=== PATIENT | male | born 1955 | race Caucasian/White ===

== ENCOUNTER 2016-08-01 07:39 | Outpatient (CLI) | payer MEDICAID | END 2016-08-01 07:40 | disposition home or self-care (01) | DX: I26.99 Other pulmonary embolism without acute cor pulmonale (principal) ==

== ENCOUNTER 2016-08-29 08:00 | Outpatient (CLI) | payer MEDICAID, MEDICARE | END 2016-08-29 23:59 | DX: I26.99 Other pulmonary embolism without acute cor pulmonale (principal) ==

== ENCOUNTER 2016-09-12 13:22 | Outpatient (CLI) | payer MEDICAID, MEDICARE | END 2016-09-12 13:23 | disposition home or self-care (01) | DX: I26.99 Other pulmonary embolism without acute cor pulmonale (principal) ==

== ENCOUNTER 2016-09-26 08:06 | Outpatient (CLI) | payer MEDICARE | END 2016-09-26 08:07 | disposition home or self-care (01) | DX: I26.99 Other pulmonary embolism without acute cor pulmonale (principal) ==

== ENCOUNTER 2016-10-11 08:00 | Outpatient (CLI) | payer MEDICARE | END 2016-10-11 08:01 | DX: I26.99 Other pulmonary embolism without acute cor pulmonale (principal) ==

== ENCOUNTER 2016-10-25 13:44 | Outpatient (CLI) | payer MEDICAID, MEDICARE | END 2016-10-25 13:45 | disposition home or self-care (01) | DX: I26.99 Other pulmonary embolism without acute cor pulmonale (principal) ==

== ENCOUNTER 2016-11-07 09:25 | Outpatient (CLI) | payer MEDICARE | END 2016-11-07 09:26 | disposition home or self-care (01) | DX: I26.99 Other pulmonary embolism without acute cor pulmonale (principal) ==

== ENCOUNTER 2016-11-29 15:00 | Outpatient (CLI) | payer MEDICARE | END 2016-11-29 15:01 | disposition home or self-care (01) | LOC: LAB.R 15:00 | PROVIDERS: ATTEND Nurse Practitioner Family | DX: J02.9 Acute pharyngitis, unspecified (principal) | CPT/HCPCS: 87070 ==

== ENCOUNTER 2016-12-13 08:00 | Outpatient (CLI) | payer MEDICARE | END 2016-12-13 08:01 | disposition home or self-care (01) | LOC: LAB.N 08:00 | PROVIDERS: ATTEND Internal Medicine Hematology & Oncology | DX: I26.99 Other pulmonary embolism without acute cor pulmonale (principal) | CPT/HCPCS: 85610 ==

== ENCOUNTER 2016-12-27 10:06 | Outpatient (CLI) | payer MEDICARE | END 2016-12-27 23:59 | disposition home or self-care (01) | LOC: LAB.N 10:06 | PROVIDERS: ATTEND Internal Medicine Hematology & Oncology | DX: I26.99 Other pulmonary embolism without acute cor pulmonale (principal) | CPT/HCPCS: 85610 ==

== ENCOUNTER 2017-01-11 13:19 | Outpatient (CLI) | payer MEDICARE | END 2017-01-11 13:20 | LOC: LAB.N 13:19 | PROVIDERS: ATTEND Internal Medicine Hematology & Oncology | DX: I26.99 Other pulmonary embolism without acute cor pulmonale (principal) | CPT/HCPCS: 85610 ==

== ENCOUNTER 2017-01-24 08:00 | Outpatient (CLI) | payer MEDICARE | END 2017-01-24 08:01 | disposition home or self-care (01) | LOC: LAB.N 08:00 | PROVIDERS: ATTEND Internal Medicine Hematology & Oncology | DX: I26.99 Other pulmonary embolism without acute cor pulmonale (principal) | CPT/HCPCS: 85610 ==

== ENCOUNTER 2017-03-08 07:46 | Outpatient (CLI) | payer MEDICARE | END 2017-03-08 07:47 | disposition home or self-care (01) | LOC: LAB.N 07:46 | PROVIDERS: ATTEND Internal Medicine Hematology & Oncology | DX: I26.99 Other pulmonary embolism without acute cor pulmonale (principal) | CPT/HCPCS: 85610 ==

== ENCOUNTER 2017-03-21 08:00 | Outpatient (CLI) | payer MEDICARE | END 2017-03-21 08:01 | disposition home or self-care (01) | LOC: LAB.N 08:00 | PROVIDERS: ATTEND Internal Medicine Hematology & Oncology | DX: I26.99 Other pulmonary embolism without acute cor pulmonale (principal) | CPT/HCPCS: 85610 ==

== ENCOUNTER 2017-03-31 14:41 | Outpatient (CLI) | payer MEDICARE | END 2017-03-31 14:42 | disposition home or self-care (01) | LOC: LAB.N 14:41 | PROVIDERS: ATTEND Internal Medicine Hematology & Oncology | DX: I26.99 Other pulmonary embolism without acute cor pulmonale (principal) | CPT/HCPCS: 85610 ==

== ENCOUNTER 2017-04-07 15:26 | Outpatient (CLI) | payer MEDICARE | END 2017-04-07 15:27 | disposition home or self-care (01) | LOC: LAB.N 15:26 | PROVIDERS: ATTEND Internal Medicine Hematology & Oncology | DX: I26.99 Other pulmonary embolism without acute cor pulmonale (principal) | CPT/HCPCS: 85610 ==

== ENCOUNTER 2017-04-18 07:59 | Outpatient (CLI) | payer MEDICARE | END 2017-04-18 08:00 | disposition home or self-care (01) | LOC: LAB.N 07:59 | PROVIDERS: ATTEND Internal Medicine Hematology & Oncology | DX: I26.99 Other pulmonary embolism without acute cor pulmonale (principal) | CPT/HCPCS: 85610 ==

== ENCOUNTER 2017-05-02 08:00 | Outpatient (CLI) | payer MEDICARE | END 2017-05-02 08:01 | disposition home or self-care (01) | LOC: LAB.N 08:00 | PROVIDERS: ATTEND Internal Medicine Hematology & Oncology | DX: I26.99 Other pulmonary embolism without acute cor pulmonale (principal) | CPT/HCPCS: 85610 ==

== ENCOUNTER 2017-05-16 14:58 | Outpatient (CLI) | payer MEDICARE ==
[2017-05-16 12:46] LABS: BASOPHILS % (AUTO) 0.3 %; EOSINOPHILS % (AUTO) 0.6 %; HCT - HEMATOCRIT 39.1 % (42.0-52.0); HGB - HEMOGLOBIN 13.4 g/dL (14.0-18.0); LYMPHOCYTES # (AUTO) 1.1 10^3/uL (1.5-3.5); MEAN CORPUSCULAR HEMOGLOBIN 32.6 pg (27.0-31.0); MEAN CORPUSCULAR HGB CONC 34.1 g/dL (32.0-36.0); MEAN CORPUSCULAR VOLUME 95.6 fL (80.0-94.0); MEAN PLATELET VOLUME 7.6 fL (7.4-11.4); MONOCYTES # (AUTO) 0.5 10^3/uL (0.0-1.0); MONOCYTES % (AUTO) 11.6 %; NEUTROPHILS # (AUTO) 2.9 10^3/uL (1.5-6.6); NEUTROPHILS % (AUTO) 63.5 %; RED BLOOD COUNT 4.09 10^6/uL (4.70-6.10); UNCORRECTED WHITE BLOOD COUNT 4.6 x10^3/uL; WHITE BLOOD COUNT 4.6 x10^3/uL (4.8-10.8)
[2017-05-16 13:24] LABS: ALBUMIN/GLOBULIN RATIO 1.3 (1.0-2.2); BILIRUBIN,TOTAL 0.5 mg/dL (0.2-1.0); BUN - BLOOD UREA NITROGEN 19 mg/dL (6-20); CALCIUM 8.9 mg/dL (8.5-10.3); CARBON DIOXIDE - CO2 24 mmol/L (21-32); CHLORIDE 105 mmol/L (101-111); CHOL/HDL RATIO 4.3 (<5.0); CHOLESTEROL 156 mg/dL; GFR - MDRD 76 (>89); GLUCOSE 102 mg/dL (70-100); HDL CHOLESTEROL 36 mg/dL; LDL/HDL RATIO 2.6 (<3.6); SODIUM 136 mmol/L (135-145); TOTAL PROTEIN 7.2 g/dL (6.7-8.2); TRIGLYCERIDES 128 mg/dL; VLDL CHOLESTEROL 26 mg/dL
== END 2017-05-16 14:59 | disposition home or self-care (01) ==
LOC: LAB.N 14:58
PROVIDERS: ATTEND Nurse Practitioner Family
DX: I10 Essential (primary) hypertension (principal); E78.5 Hyperlipidemia, unspecified; I26.99 Other pulmonary embolism without acute cor pulmonale
CPT/HCPCS: 36415; 80053; 80061; 84443; 85025; 85610

== ENCOUNTER 2017-05-19 08:03 | Outpatient (CLI) | payer MEDICARE | END 2017-05-19 08:04 | disposition home or self-care (01) | LOC: LAB.N 08:03 | PROVIDERS: ATTEND Nurse Practitioner Family | DX: D53.9 Nutritional anemia, unspecified (principal); I26.99 Other pulmonary embolism without acute cor pulmonale | CPT/HCPCS: 36415; 82607; 82746; 82977; 85610 ==

== ENCOUNTER 2017-05-30 15:05 | Outpatient (CLI) | payer MEDICARE | END 2017-05-30 15:06 | disposition home or self-care (01) | LOC: LAB.N 15:05 | PROVIDERS: ATTEND Internal Medicine Hematology & Oncology | DX: I26.99 Other pulmonary embolism without acute cor pulmonale (principal) | CPT/HCPCS: 85610 ==

== ENCOUNTER 2017-06-13 08:00 | Outpatient (CLI) | payer MEDICARE | END 2017-06-13 08:01 | disposition home or self-care (01) | LOC: LAB.N 08:00 | PROVIDERS: ATTEND Internal Medicine Hematology & Oncology | DX: I26.99 Other pulmonary embolism without acute cor pulmonale (principal) | CPT/HCPCS: 85610 ==

== ENCOUNTER 2017-06-25 20:56 | Outpatient (CLI) | payer MEDICARE | END 2017-06-25 20:57 | disposition critical access hospital (66) | LOC: EMS 20:56 | PROVIDERS: ATTEND Surgery | DX: R51 Headache (principal); W00.9XXA Unspecified fall due to ice and snow, initial encounter; Y92.9 Unspecified place or not applicable | CPT/HCPCS: A0425; A0429 ==

== ENCOUNTER 2017-06-25 21:34 | Emergency (ER) | payer MEDICARE ==
--- NOTE | 2017-06-25 22:34 | CT Preliminary Report ---
Exam: CT HEAD W/O IMPRESSION: 1. Suspect acute trace subarachnoid or subdural hemorrhage in the left frontal lobe, consistent with contrecoup injury. 2. Suggestion of a masslike lesion in the left frontal lobe lateral to the area of surgery. A recurre nt tumor cannot be excluded. Consider further evaluation with brain MRI with and without contrast. [facility] The above critical findings were discussed with Dr. Moreno by Dr. Tomeka Beck at 22:32 hrs on 06/25/17. SITE ID: [id number]
--- NOTE | 2017-06-25 22:44 | CT Report ---
EXAM: CT HEAD EXAM DATE: 06/25/2017 10:10 PM. CLINICAL HISTORY: Head pain, fall. History of left frontal tumor resection. COMPARISON: Brain CT and MRI from 06/14/2014. TECHNIQUE: Multiaxial CT images were obtained from the foramen magnum to the vertex. Reformats: Coron al. IV contrast: None. In accordance with CT protocol optimization, one or more of the following dose reduction techniques w ere utilized for this exam: automated exposure control, adjustment of mA and/or KV based on patient s ize, or use of iterative reconstructive technique. FINDINGS: Parenchyma: Encephalomalacia in the anterior left frontal lobe is consistent with prior surgery. A pu nctate focus of hyperintensity in the region of encephalomalacia (image 15, series 3) likely represen ts dystrophic calcification rather than acute parenchymal hemorrhage. Lateral to this, There is sugge stion of a mildly hyperdense masslike lesion measuring 3.2 x 3.0 cm (image 19, series 3). The wilson-wh ite matter differentiation elsewhere in the brain is preserved. Extraaxial Spaces: There is ill-defined hyperdensity in the left frontal extra-axial space (image 19, series 3), suspicious for acute subdural or subarachnoid hemorrhage. Ventricles: The ventricles and cortical sulci are mildly enlarged, consistent with age-related tissue loss. Sinuses and orbits: Imaged paranasal sinuses, orbits, and mastoids show no significant abnormality. Bones: Old left frontal craniotomy changes are present from prior surgery. A moderate right frontal s calp hematoma is present without an acute calvarial fracture. Other: Mild intragraft atherosclerosis is noted. IMPRESSION: 1. Suspect acute trace subarachnoid or subdural hemorrhage in the left frontal lobe, consistent with contrecoup injury. 2. Suggestion of a masslike lesion in the left frontal lobe lateral to the area of surgery. A recurre nt tumor cannot be excluded. Consider further evaluation with brain MRI with and without contrast. [facility] The above critical findings were discussed with Dr. Moreno by Dr. Tomeka Beck at 22:32 hrs on 06/25/17. Referring Provider Line: [phone] SITE ID: [id number]
[2017-06-25 23:01] LABS: BASOPHILS % (AUTO) 0.2 %; EOSINOPHILS # (AUTO) 0.1 10^3/uL (0.0-0.7); EOSINOPHILS % (AUTO) 0.8 %; HCT - HEMATOCRIT 39.7 % (42.0-52.0); HGB - HEMOGLOBIN 13.3 g/dL (14.0-18.0); LYMPHOCYTES # (AUTO) 1.3 10^3/uL (1.5-3.5); LYMPHOCYTES % (AUTO) 19.4 %; MEAN CORPUSCULAR HEMOGLOBIN 32.9 pg (27.0-31.0); MEAN CORPUSCULAR HGB CONC 33.6 g/dL (32.0-36.0); MEAN CORPUSCULAR VOLUME 97.7 fL (80.0-94.0); MEAN PLATELET VOLUME 7.1 fL (7.4-11.4); MONOCYTES # (AUTO) 0.6 10^3/uL (0.0-1.0); MONOCYTES % (AUTO) 9.9 %; NEUTROPHILS # (AUTO) 4.6 10^3/uL (1.5-6.6); NEUTROPHILS % (AUTO) 69.7 %; RED BLOOD COUNT 4.06 10^6/uL (4.70-6.10); RED CELL DISTRIBUTION WIDTH 13.9 % (12.0-15.0); UNCORRECTED WHITE BLOOD COUNT 6.5 x10^3/uL; WHITE BLOOD COUNT 6.5 x10^3/uL (4.8-10.8)
[2017-06-25 23:05] LABS: CALCIUM 9.1 mg/dL (8.5-10.3); POTASSIUM 4.2 mmol/L (3.5-5.0)
--- NOTE | 2017-06-25 23:09 | ED Physician Documentation ---
History of Present Illness - Stated complaint Stated Complaint: FALL/HEAD INJURY - Chief complaint Chief Complaint: Trauma Hd/Nk - History obtained from History obtained from: Patient (pt is here for a fall and head injury. pt states that he was walking with his and fell and hit his head. He states that he does not remember falling. Did hit the right side of his head. he denied any chest pain, or palpitations or shortness of breath afterward. Event occured approx 2.5 hours prior to arrival in the ER. states that it was a mechanical fall and that he tripped and fell. she was concerned because he was on coumadin for a PE and the bleeding from the cut on his head. Pt had no complaints upon my examination.) Review of Systems Constitutional: denies: Fever, Chills Eyes: denies: Loss of vision, Decreased vision, Photophobia Ears: denies: Ear pain Nose: denies: Rhinorrhea / runny nose, Epistaxis Throat: denies: Dental pain / toothache, Oral lesions / sores, Sore throat Cardiac: denies: Chest pain / pressure, Palpitations Respiratory: denies: Dyspnea, Cough GI: denies: Abdominal Pain, Nausea, Vomiting, Constipation, Diarrhea : denies: Dysuria Skin: reports: Abrasion (s) (over nose), Laceration (s) (above right eye). denies: Rash, Lesions Musculoskeletal: denies: Neck pain, Back pain, Extremity pain, Joint pain, Extremity swelling, Joint swelling Neurologic: reports: Head injury, LOC. denies: Generalized weakness, Numbness, Difficulty speaking, Syncope, Seizure, Confused, Altered mental status, Headache Immunocompromised: reports: Chemotherapy PD PAST MEDICAL HISTORY - Past Medical History Past Medical History: Yes Cardiovascular: Hypertension Respiratory: Other Neuro: Other Other Past Medical History: Lung CA, Brain CA - Past Surgical History Past Surgical History: No Neuro: Gamma knife - Present Medications Home Medications: Ambulatory Orders Medication Instructions Recorded Confirmed Lisinopril 10 mg PO DAILY 06/14/14 06/25/17 Famotidine 20 mg PO DAILY 06/25/17 06/25/17 LORazepam [Ativan] 0.5 mg PO DAILY 06/25/17 06/25/17 Pravastatin Sodium 80 mg PO DAILY 06/25/17 06/25/17 Warfarin [Coumadin] 1 mg PO DAILY 06/25/17 06/25/17 Warfarin [Coumadin] 5 mg PO DAILY 06/25/17 06/25/17 - Allergies Allergies/Adverse Reactions: Allergies Allergy/AdvReac Type Severity Reaction Status Date / Time No Known Drug Allergies Allergy Verified 06/25/17 21:54 - Social History Does the pt smoke?: No Smoking Status: Never smoker Does the pt drink ETOH?: No Does the pt have substance abuse?: No - Immunizations Immunizations are current?: Yes PD ED PE NORMAL - Vitals Vital signs reviewed: Yes - General General: Alert and oriented X 3, No acute distress, Well developed/nourished - HEENT HEENT: PERRL, EOMI, Moist mucous membranes. No: Atraumatic (0.5 cm laceratino/ abrasion above the temporal area of his right eye, no active bleeding. No pain over the orbital rims bilateral. abrasion over bridge of nose. pt with healed surgical scars C/W his hx of brain tumor removal ) - Neck Neck: No bony TTP - Cardiac Cardiac: RRR, No murmur - Respiratory Respiratory: No respiratory distress - Abdomen Abdomen: Soft, Non tender - Derm Derm: Other (0.5 cm laceration above right eye and abrasion over the nose) - Extremities Extremities: No deformity, No tenderness to palpate, Normal ROM s pain, No edema , No calf tenderness / cord - Neuro Neuro: Alert and oriented X 3, gas meter repairer 2-12 intact, No motor deficit, No sensory deficit, Normal speech Eye Opening: Spontaneous Motor: Obeys Commands Verbal: Oriented GCS Score: 15 - Psych Psych: Normal mood, Normal affect Results - Vitals Vitals: Vital Signs - 24 hr 06/25/17 06/25/17 21:36 22:50 Temperature 35.9 C L Heart Rate 68 71 Respiratory 18 16 Rate Blood Pressure 147/81 H 138/76 H O2 Saturation 96 97 Oxygen O2 Source Room air - Labs Labs: Laboratory Tests 06/25/17 06/25/17 06/25/17 22:45 22:45 22:45 WBC 6.5 RBC 4.06 L Hgb 13.3 L Hct 39.7 L MCV 97.7 H MCH 32.9 H MCHC 33.6 RDW 13.9 Plt Count 196 MPV 7.1 L Neut # 4.6 Lymph # 1.3 L [place] # 0.6 Eos # 0.1 Baso # 0.0 Absolute Nucleated RBC 0.00 Nucleated RBC % 0.0 PT 25.1 H INR 2.3 H Sodium 138 Potassium 4.2 Chloride 101 Carbon Dioxide 29 Anion Gap 8.0 BUN 16 Creatinine 1.0 Estimated GFR (MDRD) 76 L Glucose 95 Calcium 9.1 - Rads (name of study) Head CT Radiology: Final report received PD MEDICAL DECISION MAKING - ED course Complexity details: reviewed old records, reviewed results, re-evaluated patient , considered differential, d/w patient, d/w family, d/w lean consultant ED course: pt with fall on coumadin and signs of a possible acute subarachnoid/subdural bleed. We also discussed the other CT findings with the pt and the concern for a new mass like lesion. Discussed case with Dr Ty at [facility] who accepts pt. he is stable for transport. will transfer. INR 2.3. no indication for acute reversal. Pt is neurologically stable. Departure - Departure Disposition: 02 Transfer Acute Care Hosp Clinical Impression: Fall, Subarachnoid bleed Condition: Stable
[2017-06-26 00:07] LABS: INR 2.3 (0.8-1.2); PT - PROTHROMBIN TIME 25.1 secs (9.9-12.6)
[2017-06-26 04:06] VITALS: BP 114/87
== END 2017-06-26 06:00 | disposition short-term general hospital (02) ==
LOC: EDUNIT# → ED 21:34
DX: I60.9 Nontraumatic subarachnoid hemorrhage, unspecified (principal); S01.111A Laceration without foreign body of right eyelid and periocular area, initial encounter; S00.31XA Abrasion of nose, initial encounter; W01.0XXA Fall on same level from slipping, tripping and stumbling without subsequent striking against object, initial encounter; Y93.01 Activity, walking, marching and hiking; I10 Essential (primary) hypertension; I26.99 Other pulmonary embolism without acute cor pulmonale; Z79.01 Long term (current) use of anticoagulants; Z85.118 Personal history of other malignant neoplasm of bronchus and lung; Z85.841 Personal history of malignant neoplasm of brain
CPT/HCPCS: 36415; 70450; 80048; 85025; 85610; 99284; 99285

== ENCOUNTER 2017-06-26 05:53 | Outpatient (CLI) | payer MEDICARE | END 2017-06-26 05:54 | disposition short-term general hospital (02) | LOC: EMS 05:53 | PROVIDERS: ATTEND Surgery | DX: S09.90XA Unspecified injury of head, initial encounter (principal); W19.XXXA Unspecified fall, initial encounter | CPT/HCPCS: A0170; A0425; A0426 ==

== ENCOUNTER 2017-07-11 10:01 | Emergency (ER) | payer MEDICARE ==
[2017-07-11 10:08] VITALS: BP 152/72
--- NOTE | 2017-07-11 11:00 | ED Physician Documentation ---
PD HPI URI - Stated complaint Stated Complaint: COUGH,LUNG PX,CONGESTION - Chief complaint Chief Complaint: Resp - History obtained from History obtained from: Patient - History of Present Illness Timing - onset: How many days ago (2-3) Timing duration: Days Timing details: Gradual onset, Still present (had onset of chills, malaise, and cough which has increased and now having some pains left chest with coughing. Concerned about pneumonia as has lung CA that side treated with targeted immune therapy (not immune suppressant). Has underlying COPD as well.) Associated symptoms: Fever, Chills, Dry cough. No: Hemoptysis, Bilateral edema , Unilateral edema Contributing factors: COPD / asthma. No: Sick contact, Travel, Immunocompromised Worsened by: Breathing, Other (cough) Recently seen: Not recently seen Review of Systems Constitutional: reports: Fever, Chills, Myalgias, Fatigue Nose: reports: Congestion Throat: denies: Sore throat Cardiac: reports: Chest pain / pressure. denies: Palpitations, Pedal edema, Calf pain Respiratory: reports: Cough, Wheezing. denies: Dyspnea GI: reports: Diarrhea (mild). denies: Nausea, Vomiting : denies: Dysuria, Frequency PD PAST MEDICAL HISTORY - Past Medical History Cardiovascular: Hypertension Respiratory: Other Neuro: Other - Past Surgical History Past Surgical History: No Neuro: Gamma knife - Present Medications Home Medications: Ambulatory Orders Medication Instructions Recorded Confirmed Lisinopril 10 mg PO DAILY 06/14/14 07/11/17 Famotidine 20 mg PO DAILY 06/25/17 07/11/17 LORazepam [Ativan] 0.5 mg PO DAILY 06/25/17 07/11/17 Pravastatin Sodium 80 mg PO DAILY 06/25/17 07/11/17 Warfarin [Coumadin] 1 mg PO DAILY 06/25/17 07/11/17 Warfarin [Coumadin] 5 mg PO DAILY 06/25/17 07/11/17 Albuterol Sulf [Ventolin Hfa 1 - 2 puffs INH Q4HR PRN #1 inhaler 07/11/17 Inhaler] Azithromycin [Zithromax] 250 mg PO DAILY #6 tablet 07/11/17 Benzonatate [Tessalon] 100 mg PO TID PRN #25 capsule 07/11/17 Dexamethasone [Decadron] 4 mg PO DAILY #5 tablet 07/11/17 - Allergies Allergies/Adverse Reactions: Allergies Allergy/AdvReac Type Severity Reaction Status Date / Time No Known Drug Allergies Allergy Verified 07/11/17 12:12 - Social History Does the pt smoke?: No Smoking Status: Never smoker Does the pt drink ETOH?: No Does the pt have substance abuse?: No - Immunizations Immunizations are current?: Yes - POLST Patient has POLST: No PD ED PE NORMAL - Vitals Vital signs reviewed: Yes - General General: Alert and oriented X 3, No acute distress, Well developed/nourished - HEENT HEENT: Ears normal, Pharynx benign - Neck Neck: Supple, no meningeal sign, No adenopathy - Cardiac Cardiac: RRR, No murmur - Respiratory Respiratory: No: Clear bilaterally (no coarse sounds, but does have some general mild wheezing. ) - Abdomen Abdomen: Soft, Non tender - Derm Derm: Normal color, Warm and dry - Extremities Extremities: No tenderness to palpate, Normal ROM s pain, No edema, No calf tenderness / cord - Neuro Neuro: Alert and oriented X 3, No motor deficit, Normal speech Results - Vitals Vitals: Oxygen O2 Source Room air - Rads (name of study) chest Radiology: Prelim report reviewed (left chest mass c/w tumor), EMP read contemporaneously PD MEDICAL DECISION MAKING - ED course Complexity details: reviewed results (no infiltrates; left chest mass c/w malignancy (known process for the patient). ), considered differential (sounds like URI with cough and some pleural pain with cough. Gradual onset and he says he feels ill, feeling like he has infection. After discussion, we had shared decision to not investigate for PE. He is to resume Warfarin today anyway ( planned timing post ICH recently). He will be having Coumadin level checked next week, which is good as the abx/steroids will increased level faster than might otherwise. Likely viral but with underlying lung disease, will give abx too as literature suggests better outcomes.), d/w patient Departure - Departure Disposition: 01 Home, Self Care Clinical Impression: Bronchitis Upper respiratory infection Qualifiers: URI type: unspecified URI Qualified Code(s): J06.9 - Acute upper respiratory infection, unspecified Condition: Stable Record reviewed to determine appropriate education?: Yes Instructions: ED Upper Resp Infec Abx Tx Follow-Up: Fly,Shaneka M, [employer] [Primary Care Provider] - Prescriptions: Albuterol Sulf [Ventolin Hfa Inhaler] 1 - 2 puffs INH Q4HR PRN #1 inhaler PRN Reason: Shortness Of Air/Wheezing Azithromycin [Zithromax] 250 mg PO DAILY #6 tablet Benzonatate [Tessalon] 100 mg PO TID PRN #25 capsule PRN Reason: Cough Dexamethasone [Decadron] 4 mg PO DAILY #5 tablet Comments: Use albuterol inhaler 2 puffs 4 times a day for the next 7-10 days. Then 2 as needed. Decadron daily for inflammation of the airways for the next 5 days. This more likely is viral but given your underlying lung problems, I be concern for bacterial and would give antibiotics as well. Take Zithromax daily for 5 days as directed. Use Tessalon if needed for cough. Recheck if not improved over the next few days return sooner if worse. Discharge Date/Time: 07/11/17 13:04
[2017-07-11] MEDS ORDERED: DEXAMETHASONE 10 MG/ML VIAL PO STA (11:30)
[2017-07-11] MEDS ORDERED: HYDROcod/ACETAM 5/325 MG TABLET PO STA (11:30)
[2017-07-11] MEDS ORDERED: IPRATROPIUM/ALBUTEROL 3 ML NEB INH STA (11:30)
[2017-07-11] MEDS ORDERED: CHERRY SYRUP 10 ML UDC PO ONE (12:07)
--- NOTE | 2017-07-11 12:10 | XRAY Report ---
EXAM: CHEST RADIOGRAPHY EXAM DATE: 07/11/2017 11:46 AM. CLINICAL HISTORY: Chest pain left sided. COMPARISON: None. TECHNIQUE: 2 views. FINDINGS: Lungs/Pleura: Left hilar/posterior left lung opacity measuring approximately 5 cm. Bilateral intersti tial opacities appear chronic. No pneumothorax or pleural effusion. The lungs appear mildly hyperinfl ated. Mediastinum: Heart size is normal. Other: Left chest port catheter tip is in the mid SVC. 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 Obstructive pneumonia or other superimpos ed acute infection not excluded. [facility] Referring Provider Line: [phone] SITE ID: [id number]
== END 2017-07-11 13:04 | disposition home or self-care (01) ==
LOC: ED 10:01
DX: J40 Bronchitis, not specified as acute or chronic (principal); J06.9 Acute upper respiratory infection, unspecified; I10 Essential (primary) hypertension; C34.90 Malignant neoplasm of unspecified part of unspecified bronchus or lung; Z79.01 Long term (current) use of anticoagulants
CPT/HCPCS: 71046; 94640; 99283; A9270; J7620

== ENCOUNTER 2017-07-18 07:51 | Outpatient (CLI) | payer MEDICARE | END 2017-07-18 07:52 | disposition home or self-care (01) | LOC: LAB.N 07:51 | PROVIDERS: ATTEND Internal Medicine Hematology & Oncology | DX: I26.99 Other pulmonary embolism without acute cor pulmonale (principal) | CPT/HCPCS: 85610 ==

== ENCOUNTER 2017-07-25 07:41 | Outpatient (CLI) | payer MEDICARE | END 2017-07-25 07:42 | disposition home or self-care (01) | LOC: LAB.N 07:41 | PROVIDERS: ATTEND Internal Medicine Hematology & Oncology | DX: I26.99 Other pulmonary embolism without acute cor pulmonale (principal) | CPT/HCPCS: 85610 ==

== ENCOUNTER 2017-08-04 07:34 | Outpatient (CLI) | payer MEDICARE | END 2017-08-04 07:35 | disposition home or self-care (01) | LOC: LAB.N 07:34 | PROVIDERS: ATTEND Internal Medicine Hematology & Oncology | DX: I26.99 Other pulmonary embolism without acute cor pulmonale (principal) | CPT/HCPCS: 85610 ==

== ENCOUNTER 2017-08-10 07:52 | Outpatient (CLI) | payer MEDICARE | END 2017-08-10 07:53 | LOC: LAB.N 07:52 | PROVIDERS: ATTEND Internal Medicine Hematology & Oncology | DX: I26.99 Other pulmonary embolism without acute cor pulmonale (principal) | CPT/HCPCS: 85610 ==

== ENCOUNTER 2017-08-22 08:00 | Outpatient (CLI) | payer MEDICARE | END 2017-08-22 08:01 | disposition home or self-care (01) | LOC: LAB.N 08:00 | PROVIDERS: ATTEND Internal Medicine Hematology & Oncology | DX: I26.99 Other pulmonary embolism without acute cor pulmonale (principal) | CPT/HCPCS: 85610 ==

== ENCOUNTER 2017-09-06 08:00 | Outpatient (CLI) | payer MEDICARE | END 2017-09-06 08:01 | disposition home or self-care (01) | LOC: LAB.N 08:00 | PROVIDERS: ATTEND Internal Medicine Hematology & Oncology | DX: I26.99 Other pulmonary embolism without acute cor pulmonale (principal) | CPT/HCPCS: 85610 ==

== ENCOUNTER 2017-09-19 08:10 | Outpatient (CLI) | payer MEDICARE | END 2017-09-19 08:11 | disposition home or self-care (01) | LOC: LAB.N 08:10 | PROVIDERS: ATTEND Internal Medicine Hematology & Oncology | DX: I26.99 Other pulmonary embolism without acute cor pulmonale (principal) | CPT/HCPCS: 85610 ==

== ENCOUNTER 2017-10-03 07:41 | Outpatient (CLI) | payer MEDICARE | END 2017-10-03 07:42 | disposition home or self-care (01) | LOC: LAB.N 07:41 | PROVIDERS: ATTEND Internal Medicine Hematology & Oncology | DX: I26.99 Other pulmonary embolism without acute cor pulmonale (principal) | CPT/HCPCS: 85610 ==

== ENCOUNTER 2017-10-17 07:57 | Outpatient (CLI) | payer MEDICARE | END 2017-10-17 07:58 | disposition home or self-care (01) | LOC: LAB.N 07:57 | PROVIDERS: ATTEND Internal Medicine Hematology & Oncology | DX: I26.99 Other pulmonary embolism without acute cor pulmonale (principal) | CPT/HCPCS: 85610 ==

== ENCOUNTER 2017-10-31 07:40 | Outpatient (CLI) | payer MEDICARE | END 2017-10-31 07:41 | disposition home or self-care (01) | LOC: LAB.N 07:40 | PROVIDERS: ATTEND Internal Medicine Hematology & Oncology | DX: I26.99 Other pulmonary embolism without acute cor pulmonale (principal) | CPT/HCPCS: 85610 ==

== ENCOUNTER 2017-11-16 10:41 | Outpatient (CLI) | payer MEDICARE | END 2017-11-16 10:42 | LOC: LAB.N 10:41 | PROVIDERS: ATTEND Internal Medicine Hematology & Oncology | DX: I26.99 Other pulmonary embolism without acute cor pulmonale (principal) | CPT/HCPCS: 85610 ==

== ENCOUNTER 2017-11-30 08:00 | Outpatient (CLI) | payer MEDICARE | END 2017-11-30 08:01 | disposition home or self-care (01) | LOC: LAB.N 08:00 | PROVIDERS: ATTEND Internal Medicine Hematology & Oncology | DX: I26.99 Other pulmonary embolism without acute cor pulmonale (principal) | CPT/HCPCS: 85610 ==

== ENCOUNTER 2017-12-14 07:51 | Outpatient (CLI) | payer MEDICARE | END 2017-12-14 23:59 | disposition home or self-care (01) | LOC: LAB.N 07:51 | PROVIDERS: ATTEND Internal Medicine Hematology & Oncology | DX: I26.99 Other pulmonary embolism without acute cor pulmonale (principal) | CPT/HCPCS: 85610 ==

== ENCOUNTER 2017-12-25 08:21 | Outpatient (CLI) | END 2017-12-25 08:22 | disposition home or self-care (01) ==

== ENCOUNTER 2017-12-28 07:43 | Outpatient (CLI) | payer MEDICARE | END 2017-12-28 07:44 | disposition home or self-care (01) | LOC: LAB.N 07:43 | PROVIDERS: ATTEND Internal Medicine Hematology & Oncology | DX: I26.99 Other pulmonary embolism without acute cor pulmonale (principal) | CPT/HCPCS: 85610 ==

== ENCOUNTER 2018-03-08 08:00 | Outpatient (CLI) | payer MEDICARE | END 2018-03-08 08:01 | disposition home or self-care (01) | LOC: LAB.N 08:00 | PROVIDERS: ATTEND Internal Medicine Hematology & Oncology | DX: I26.99 Other pulmonary embolism without acute cor pulmonale (principal) | CPT/HCPCS: 85610 ==

== ENCOUNTER 2018-03-22 08:00 | Outpatient (CLI) | payer MEDICARE ==
[2018-03-22 13:16] LABS: ALBUMIN 3.1 g/dL (3.2-5.5); ALBUMIN/GLOBULIN RATIO 0.8 (1.0-2.2); BILIRUBIN,TOTAL 3.6 mg/dL (0.2-1.0); CREATININE 0.9 mg/dL (0.6-1.2); TOTAL PROTEIN 7.1 g/dL (6.7-8.2)
[2018-03-22 13:22] LABS: PT - PROTHROMBIN TIME 76.4 secs (9.9-12.6)
[2018-03-22 13:47] LABS: INR 7.3 (0.8-1.2)
== END 2018-03-22 08:01 | disposition home or self-care (01) ==
LOC: LAB.N 08:00
PROVIDERS: ATTEND Internal Medicine Hematology & Oncology
DX: I26.99 Other pulmonary embolism without acute cor pulmonale (principal); C34.90 Malignant neoplasm of unspecified part of unspecified bronchus or lung
CPT/HCPCS: 36415; 80053; 85610

== ENCOUNTER 2018-03-23 13:17 | Outpatient (CLI) | payer MEDICARE | END 2018-03-23 13:18 | disposition home or self-care (01) | LOC: LAB.N 13:17 | PROVIDERS: ATTEND Internal Medicine Hematology & Oncology | DX: I26.99 Other pulmonary embolism without acute cor pulmonale (principal) | CPT/HCPCS: 85610 ==

== ENCOUNTER 2018-03-27 08:00 | Outpatient (CLI) | payer MEDICARE | END 2018-03-27 08:01 | disposition home or self-care (01) | LOC: LAB.N 08:00 | PROVIDERS: ATTEND Internal Medicine Hematology & Oncology | DX: I26.99 Other pulmonary embolism without acute cor pulmonale (principal) | CPT/HCPCS: 85610 ==

== ENCOUNTER 2018-04-05 08:00 | Outpatient (CLI) | payer MEDICARE | END 2018-04-05 08:01 | disposition home or self-care (01) | LOC: LAB.N 08:00 | PROVIDERS: ATTEND Internal Medicine Hematology & Oncology | DX: I26.99 Other pulmonary embolism without acute cor pulmonale (principal) | CPT/HCPCS: 85610 ==

== ENCOUNTER 2018-04-17 09:12 | Outpatient (CLI) | payer MEDICARE ==
[2018-04-17 13:23] LABS: ALBUMIN/GLOBULIN RATIO 1.3 (1.0-2.2); ALKALINE PHOSPHATASE 141 IU/L (42-121); ALT ALANINE AMINOTRANSFERASE 52 IU/L (10-60); AST ASPARTATE AMINOTRANSFERASE 45 IU/L (10-42); BILIRUBIN,TOTAL 1.2 mg/dL (0.2-1.0); BUN - BLOOD UREA NITROGEN 18 mg/dL (6-20); CHOL/HDL RATIO 5.4 (<5.0); CHOLESTEROL 331 mg/dL; CREATININE 1.1 mg/dL (0.6-1.2); GFR - MDRD 68 (>89); HDL CHOLESTEROL 61 mg/dL; LDL CHOLESTEROL,CALCULATED 229 mg/dL; LDL/HDL RATIO 3.8 (<3.6); TOTAL PROTEIN 7.2 g/dL (6.7-8.2); VLDL CHOLESTEROL 41 mg/dL
[2018-04-17 14:20] LABS: CALCIUM 9.3 mg/dL (8.5-10.3); CARBON DIOXIDE - CO2 26 mmol/L (21-32); CHLORIDE 101 mmol/L (101-111); GLUCOSE 91 mg/dL (70-100); SODIUM 137 mmol/L (135-145)
== END 2018-04-17 09:13 | disposition home or self-care (01) ==
LOC: LAB.WCP 09:12
PROVIDERS: ATTEND Family Medicine
DX: E78.5 Hyperlipidemia, unspecified (principal)
CPT/HCPCS: 36415; 80053; 80061; 83721

== ENCOUNTER 2018-04-19 07:59 | Outpatient (CLI) | payer MEDICARE | END 2018-04-19 08:00 | disposition home or self-care (01) | LOC: LAB.N 07:59 | PROVIDERS: ATTEND Internal Medicine Hematology & Oncology | DX: I26.99 Other pulmonary embolism without acute cor pulmonale (principal) | CPT/HCPCS: 85610 ==

== ENCOUNTER 2018-05-03 08:00 | Outpatient (CLI) | payer MEDICARE | END 2018-05-03 08:01 | LOC: LAB.N 08:00 | PROVIDERS: ATTEND Internal Medicine Hematology & Oncology | DX: I26.99 Other pulmonary embolism without acute cor pulmonale (principal) | CPT/HCPCS: 85610 ==

== ENCOUNTER 2018-05-17 08:53 | Outpatient (CLI) | payer MEDICARE ==
[2018-05-17 14:13] LABS: ALBUMIN 4.2 g/dL (3.2-5.5); ALBUMIN/GLOBULIN RATIO 1.4 (1.0-2.2); ALKALINE PHOSPHATASE 73 IU/L (42-121); ALT ALANINE AMINOTRANSFERASE 24 IU/L (10-60); AST ASPARTATE AMINOTRANSFERASE 33 IU/L (10-42); BILIRUBIN,TOTAL 1.1 mg/dL (0.2-1.0); BUN - BLOOD UREA NITROGEN 23 mg/dL (6-20); CALCIUM 9.2 mg/dL (8.5-10.3); CARBON DIOXIDE - CO2 28 mmol/L (21-32); CHLORIDE 100 mmol/L (101-111); CHOLESTEROL 290 mg/dL; GFR - MDRD 76 (>89); GLUCOSE 91 mg/dL (70-100); HDL CHOLESTEROL 58 mg/dL; LDL CHOLESTEROL,CALCULATED 201 mg/dL; LDL/HDL RATIO 3.5 (<3.6); SODIUM 135 mmol/L (135-145); TOTAL PROTEIN 7.1 g/dL (6.7-8.2); VLDL CHOLESTEROL 31 mg/dL
== END 2018-05-17 08:54 ==
LOC: LAB.WCP 08:53
PROVIDERS: ATTEND Family Medicine
DX: E78.5 Hyperlipidemia, unspecified (principal); I10 Essential (primary) hypertension; Z13.1 Encounter for screening for diabetes mellitus; R74.8 Abnormal levels of other serum enzymes
CPT/HCPCS: 36415; 80053; 80061; 82306; 83721

== ENCOUNTER 2018-05-23 09:51 | Outpatient (CLI) | payer MEDICARE | END 2018-05-23 09:52 | disposition home or self-care (01) | LOC: LAB.N 09:51 | PROVIDERS: ATTEND Internal Medicine Hematology & Oncology | DX: I26.99 Other pulmonary embolism without acute cor pulmonale (principal) | CPT/HCPCS: 85610 ==

== ENCOUNTER 2018-05-31 09:01 | Outpatient (CLI) | payer MEDICARE | END 2018-05-31 23:59 | disposition home or self-care (01) | LOC: LAB.N 09:01 | PROVIDERS: ATTEND Internal Medicine Hematology & Oncology | DX: I26.99 Other pulmonary embolism without acute cor pulmonale (principal) | CPT/HCPCS: 85610 ==

== ENCOUNTER 2018-06-15 08:00 | Outpatient (CLI) | payer MEDICARE ==
[2018-06-15 14:02] LABS: ALBUMIN 4.4 g/dL (3.2-5.5); ALBUMIN/GLOBULIN RATIO 1.5 (1.0-2.2); BILIRUBIN,TOTAL 0.8 mg/dL (0.2-1.0); CALCIUM 9.4 mg/dL (8.5-10.3); TOTAL PROTEIN 7.3 g/dL (6.7-8.2)
== END 2018-06-15 23:59 | disposition home or self-care (01) ==
LOC: LAB.N 08:00
PROVIDERS: ATTEND Internal Medicine Hematology & Oncology
DX: I26.99 Other pulmonary embolism without acute cor pulmonale (principal); R74.8 Abnormal levels of other serum enzymes
CPT/HCPCS: 36415; 80053; 85610

== ENCOUNTER 2018-06-25 09:27 | Outpatient (CLI) | payer MEDICARE | END 2018-06-25 23:59 | disposition home or self-care (01) | LOC: LAB.N 09:27 | PROVIDERS: ATTEND Internal Medicine Hematology & Oncology | DX: I26.99 Other pulmonary embolism without acute cor pulmonale (principal) | CPT/HCPCS: 85610 ==

== ENCOUNTER 2018-07-02 08:14 | Outpatient (CLI) | payer MEDICARE | END 2018-07-02 08:15 | disposition home or self-care (01) | LOC: LAB.N 08:14 | PROVIDERS: ATTEND Internal Medicine Hematology & Oncology | DX: I26.99 Other pulmonary embolism without acute cor pulmonale (principal) | CPT/HCPCS: 85610 ==

== ENCOUNTER 2018-07-13 08:00 | Outpatient (CLI) | payer MEDICARE | END 2018-07-13 23:59 | disposition home or self-care (01) | LOC: LAB.N 08:00 | PROVIDERS: ATTEND Internal Medicine Hematology & Oncology | DX: I26.99 Other pulmonary embolism without acute cor pulmonale (principal) | CPT/HCPCS: 85610 ==

== ENCOUNTER 2018-07-20 09:19 | Outpatient (CLI) | payer MEDICARE | END 2018-07-20 23:59 | disposition home or self-care (01) | LOC: LAB.N 09:19 | PROVIDERS: ATTEND Internal Medicine Hematology & Oncology | DX: I26.99 Other pulmonary embolism without acute cor pulmonale (principal) | CPT/HCPCS: 85610 ==

== ENCOUNTER 2018-07-27 08:00 | Outpatient (CLI) | payer MEDICARE | END 2018-07-27 23:59 | disposition home or self-care (01) | LOC: LAB.N 08:00 | PROVIDERS: ATTEND Internal Medicine Hematology & Oncology | DX: I26.99 Other pulmonary embolism without acute cor pulmonale (principal) | CPT/HCPCS: 85610 ==

== ENCOUNTER 2018-08-10 08:00 | Outpatient (CLI) | payer MEDICARE | END 2018-08-10 23:59 | disposition home or self-care (01) | LOC: LAB.N 08:00 | PROVIDERS: ATTEND Internal Medicine Hematology & Oncology | DX: I26.99 Other pulmonary embolism without acute cor pulmonale (principal) | CPT/HCPCS: 85610 ==

== ENCOUNTER 2018-08-17 09:20 | Outpatient (CLI) | payer MEDICARE | END 2018-08-17 23:59 | disposition home or self-care (01) | LOC: LAB.N 09:20 | PROVIDERS: ATTEND Internal Medicine Hematology & Oncology | DX: I26.99 Other pulmonary embolism without acute cor pulmonale (principal) | CPT/HCPCS: 85610 ==

== ENCOUNTER 2018-09-14 07:57 | Outpatient (CLI) | payer MEDICARE | END 2018-09-14 23:59 | LOC: LAB.N 07:57 | PROVIDERS: ATTEND Internal Medicine Hematology & Oncology | DX: I26.99 Other pulmonary embolism without acute cor pulmonale (principal) | CPT/HCPCS: 85610 ==

== ENCOUNTER 2018-09-14 09:23 | Outpatient (CLI) | payer MEDICARE ==
[2018-09-14 13:25] LABS: ALBUMIN 4.2 g/dL (3.2-5.5); ALBUMIN/GLOBULIN RATIO 1.6 (1.0-2.2); ALKALINE PHOSPHATASE 62 IU/L (42-121); ALT ALANINE AMINOTRANSFERASE 24 IU/L (10-60); AST ASPARTATE AMINOTRANSFERASE 29 IU/L (10-42); BUN - BLOOD UREA NITROGEN 16 mg/dL (6-20); CHOL/HDL RATIO 3.8 (<5.0); CHOLESTEROL 202 mg/dL; CREATININE 0.9 mg/dL (0.6-1.2); GFR - MDRD 85 (>89); HDL CHOLESTEROL 53 mg/dL; LDL CHOLESTEROL,CALCULATED 122 mg/dL; LDL/HDL RATIO 2.3 (<3.6); TOTAL PROTEIN 6.9 g/dL (6.7-8.2); VLDL CHOLESTEROL 27 mg/dL
[2018-09-14 13:40] LABS: CALCIUM 9.4 mg/dL (8.5-10.3); CARBON DIOXIDE - CO2 27 mmol/L (21-32); CHLORIDE 107 mmol/L (101-111); GLUCOSE 95 mg/dL (70-100); SODIUM 141 mmol/L (135-145)
== END 2018-09-14 09:24 | disposition home or self-care (01) ==
LOC: LAB.WCP 09:23
PROVIDERS: ATTEND Family Medicine
DX: R74.8 Abnormal levels of other serum enzymes (principal); E78.5 Hyperlipidemia, unspecified
CPT/HCPCS: 36415; 80053; 80061; 83721

== ENCOUNTER 2018-10-12 08:00 | Outpatient (CLI) | payer MEDICARE | END 2018-10-12 23:59 | disposition home or self-care (01) | LOC: LAB.N 08:00 | PROVIDERS: ATTEND Internal Medicine Hematology & Oncology | DX: I26.99 Other pulmonary embolism without acute cor pulmonale (principal) | CPT/HCPCS: 85610 ==

== ENCOUNTER 2018-11-09 08:00 | Outpatient (CLI) | payer MEDICARE | END 2018-11-09 23:59 | disposition home or self-care (01) | LOC: LAB.N 08:00 | PROVIDERS: ATTEND Internal Medicine Hematology & Oncology | DX: I26.99 Other pulmonary embolism without acute cor pulmonale (principal) | CPT/HCPCS: 85610 ==

== ENCOUNTER 2018-11-16 08:00 | Outpatient (CLI) | payer MEDICARE | END 2018-11-16 23:59 | disposition home or self-care (01) | LOC: LAB.N 08:00 | PROVIDERS: ATTEND Internal Medicine Hematology & Oncology | DX: I26.99 Other pulmonary embolism without acute cor pulmonale (principal) | CPT/HCPCS: 85610 ==

== ENCOUNTER 2018-12-07 08:00 | Outpatient (CLI) | payer MEDICARE | END 2018-12-07 23:59 | disposition home or self-care (01) | LOC: LAB.N 08:00 | PROVIDERS: ATTEND Internal Medicine Hematology & Oncology | DX: I26.99 Other pulmonary embolism without acute cor pulmonale (principal) | CPT/HCPCS: 85610 ==

== ENCOUNTER 2018-12-28 08:45 | Outpatient (CLI) | payer MEDICARE | END 2018-12-28 23:59 | disposition home or self-care (01) | LOC: LAB.N 08:45 | PROVIDERS: ATTEND Internal Medicine Hematology & Oncology | DX: I27.82 Chronic pulmonary embolism (principal); I26.99 Other pulmonary embolism without acute cor pulmonale | CPT/HCPCS: 85610 ==

== ENCOUNTER 2019-01-04 08:24 | Outpatient (CLI) | payer MEDICARE | END 2019-01-04 23:59 | disposition home or self-care (01) | LOC: LAB.N 08:24 | PROVIDERS: ATTEND Internal Medicine Hematology & Oncology | DX: I26.99 Other pulmonary embolism without acute cor pulmonale (principal) | CPT/HCPCS: 85610 ==

== ENCOUNTER 2019-02-01 | Outpatient (CLI) | payer MEDICARE | END 2019-02-01 23:59 | disposition home or self-care (01) | DX: I26.99 Other pulmonary embolism without acute cor pulmonale (principal) ==

== ENCOUNTER 2019-03-01 08:00 | Outpatient (CLI) | payer MEDICARE | END 2019-03-01 23:59 | disposition home or self-care (01) | LOC: LAB.N 08:00 | PROVIDERS: ATTEND Internal Medicine Hematology & Oncology | DX: I26.99 Other pulmonary embolism without acute cor pulmonale (principal) | CPT/HCPCS: 85610 ==

== ENCOUNTER 2019-03-29 08:00 | Outpatient (CLI) | payer MEDICARE | END 2019-03-29 23:59 | disposition home or self-care (01) | LOC: LAB.N 08:00 | PROVIDERS: ATTEND Internal Medicine Hematology & Oncology | DX: I26.99 Other pulmonary embolism without acute cor pulmonale (principal) | CPT/HCPCS: 85610 ==

== ENCOUNTER 2019-04-17 07:31 | Outpatient (CLI) | payer MEDICARE ==
[2019-04-17 12:52] LABS: ALBUMIN 4.4 g/dL (3.2-5.5); ALBUMIN/GLOBULIN RATIO 1.6 (1.0-2.2); BILIRUBIN,TOTAL 0.9 mg/dL (0.2-1.0); CALCIUM 9.1 mg/dL (8.5-10.3); TOTAL PROTEIN 7.1 g/dL (6.7-8.2)
== END 2019-04-17 23:59 | disposition home or self-care (01) ==
LOC: LAB.N 07:31
PROVIDERS: ATTEND Family Medicine
DX: R74.8 Abnormal levels of other serum enzymes (principal)
CPT/HCPCS: 36415; 80053

== ENCOUNTER 2019-04-22 08:00 | Outpatient (CLI) | payer MEDICARE | END 2019-04-22 23:59 | disposition home or self-care (01) | LOC: LAB.N 08:00 | PROVIDERS: ATTEND Internal Medicine Hematology & Oncology | DX: I26.99 Other pulmonary embolism without acute cor pulmonale (principal) | CPT/HCPCS: 85610 ==

== ENCOUNTER 2019-04-23 08:30 | Outpatient (CLI) | payer MEDICARE ==
[2019-04-23 12:16] LABS: CHOL/HDL RATIO 3.5 (<5.0); CHOLESTEROL 207 mg/dL; HDL CHOLESTEROL 60 mg/dL; LDL CHOLESTEROL,CALCULATED 119 mg/dL; VLDL CHOLESTEROL 28 mg/dL
== END 2019-04-23 23:59 ==
LOC: LAB.N 08:30
PROVIDERS: ATTEND Family Medicine
DX: E78.5 Hyperlipidemia, unspecified (principal)
CPT/HCPCS: 36415; 80061; 83721

== ENCOUNTER 2019-04-30 08:00 | Outpatient (CLI) | payer MEDICARE | END 2019-04-30 08:01 | disposition home or self-care (01) | LOC: LAB.N 08:00 | PROVIDERS: ATTEND Internal Medicine Hematology & Oncology | DX: I26.99 Other pulmonary embolism without acute cor pulmonale (principal) | CPT/HCPCS: 85610 ==

== ENCOUNTER 2019-05-23 07:00 | Outpatient (CLI) | payer MEDICARE | END 2019-05-23 23:59 | disposition home or self-care (01) | LOC: LAB.N 07:00 | PROVIDERS: ATTEND Internal Medicine Hematology & Oncology | DX: I26.99 Other pulmonary embolism without acute cor pulmonale (principal) | CPT/HCPCS: 85610 ==

== ENCOUNTER 2019-06-21 08:00 | Outpatient (CLI) | payer MEDICARE | END 2019-06-21 23:59 | LOC: LAB.N 08:00 | PROVIDERS: ATTEND Family Medicine | DX: I48.92 Unspecified atrial flutter (principal) | CPT/HCPCS: 85610 ==

== ENCOUNTER 2019-06-28 08:00 | Outpatient (CLI) | payer MEDICARE | END 2019-06-28 23:59 | disposition home or self-care (01) | LOC: LAB.N 08:00 | PROVIDERS: ATTEND Family Medicine | DX: I26.99 Other pulmonary embolism without acute cor pulmonale (principal) | CPT/HCPCS: 85610 ==

== ENCOUNTER 2019-07-19 13:59 | Outpatient (CLI) | payer MEDICARE | END 2019-07-19 23:59 | disposition home or self-care (01) | LOC: LAB.N 13:59 | PROVIDERS: ATTEND Family Medicine | DX: I26.99 Other pulmonary embolism without acute cor pulmonale (principal) | CPT/HCPCS: 85610 ==

== ENCOUNTER 2019-08-21 08:27 | Outpatient (CLI) | payer MEDICARE ==
[2019-08-21 12:57] LABS: ALBUMIN 4.1 g/dL (3.2-5.5); ALBUMIN/GLOBULIN RATIO 1.4 (1.0-2.2); ALKALINE PHOSPHATASE 49 IU/L (42-121); ALT ALANINE AMINOTRANSFERASE 25 IU/L (10-60); AST ASPARTATE AMINOTRANSFERASE 33 IU/L (10-42); BILIRUBIN,TOTAL 0.8 mg/dL (0.2-1.0); BUN - BLOOD UREA NITROGEN 13 mg/dL (6-20); CARBON DIOXIDE - CO2 27 mmol/L (21-32); CHLORIDE 108 mmol/L (101-111); CHOL/HDL RATIO 3.4 (<5.0); CHOLESTEROL 205 mg/dL; CREATININE 1.1 mg/dL (0.6-1.2); GFR - MDRD 67 (>89); GLUCOSE 92 mg/dL (70-100); HDL CHOLESTEROL 60 mg/dL; LDL CHOLESTEROL,CALCULATED 120 mg/dL; SODIUM 141 mmol/L (135-145); VLDL CHOLESTEROL 25 mg/dL
== END 2019-08-21 23:59 | disposition home or self-care (01) ==
LOC: LAB.N 08:27
PROVIDERS: ATTEND Family Medicine
DX: R74.8 Abnormal levels of other serum enzymes (principal); E78.5 Hyperlipidemia, unspecified; I26.99 Other pulmonary embolism without acute cor pulmonale
CPT/HCPCS: 36415; 80053; 80061; 83721; 85610

== ENCOUNTER 2019-09-26 08:00 | Outpatient (CLI) | payer MEDICARE | END 2019-09-26 23:59 | disposition home or self-care (01) | LOC: LAB.N 08:00 | PROVIDERS: ATTEND Family Medicine | DX: I26.99 Other pulmonary embolism without acute cor pulmonale (principal) | CPT/HCPCS: 85610 ==

== ENCOUNTER 2019-10-10 08:00 | Outpatient (CLI) | payer MEDICARE | END 2019-10-10 23:59 | disposition home or self-care (01) | LOC: LAB.WCP 08:00 | PROVIDERS: ATTEND Family Medicine | DX: I48.92 Unspecified atrial flutter (principal); Z79.01 Long term (current) use of anticoagulants; I27.82 Chronic pulmonary embolism ==

== ENCOUNTER 2019-10-15 08:00 | Outpatient (CLI) | payer MEDICARE | END 2019-10-15 23:59 | disposition home or self-care (01) | LOC: LAB.WCP 08:00 | PROVIDERS: ATTEND Family Medicine | DX: I48.92 Unspecified atrial flutter (principal); Z79.01 Long term (current) use of anticoagulants ==

== ENCOUNTER 2019-10-29 08:00 | Outpatient (CLI) | payer MEDICARE | END 2019-10-29 23:59 | disposition home or self-care (01) | LOC: LAB.N 08:00 | PROVIDERS: ATTEND Family Medicine | DX: I27.82 Chronic pulmonary embolism (principal); Z79.01 Long term (current) use of anticoagulants ==

== ENCOUNTER 2019-11-12 08:00 | Outpatient (CLI) | payer MEDICARE | END 2019-11-12 23:59 | disposition home or self-care (01) | LOC: LAB.N 08:00 | PROVIDERS: ATTEND Family Medicine | DX: Z53.9 Procedure and treatment not carried out, unspecified reason (principal) ==

== ENCOUNTER 2019-12-24 08:00 | Outpatient (CLI) | payer MEDICARE | END 2019-12-24 23:59 | disposition home or self-care (01) | LOC: LAB.WCP 08:00 | PROVIDERS: ATTEND Family Medicine | DX: I48.92 Unspecified atrial flutter (principal); Z79.01 Long term (current) use of anticoagulants ==

== ENCOUNTER 2020-01-01 08:00 | Outpatient (CLI) | payer MEDICARE | END 2020-01-01 23:59 | disposition home or self-care (01) | LOC: LAB.WCP 08:00 | PROVIDERS: ATTEND Family Medicine | DX: I48.92 Unspecified atrial flutter (principal); Z79.01 Long term (current) use of anticoagulants ==

== ENCOUNTER 2020-01-15 08:00 | Outpatient (CLI) | payer MEDICARE | END 2020-01-15 23:59 | disposition home or self-care (01) | LOC: LAB.WCP 08:00 | PROVIDERS: ATTEND Family Medicine | DX: I27.82 Chronic pulmonary embolism (principal) ==

== ENCOUNTER 2020-03-04 08:00 | Outpatient (CLI) | payer MEDICARE | END 2020-03-04 23:59 | disposition home or self-care (01) | LOC: LAB.WCP 08:00 | PROVIDERS: ATTEND Family Medicine | DX: I48.92 Unspecified atrial flutter (principal); Z79.01 Long term (current) use of anticoagulants; I27.82 Chronic pulmonary embolism ==

== ENCOUNTER 2020-04-01 08:00 | Outpatient (CLI) | payer MEDICARE | END 2020-04-01 23:59 | disposition home or self-care (01) | LOC: LAB.WCP 08:00 | PROVIDERS: ATTEND Family Medicine | DX: Z79.01 Long term (current) use of anticoagulants (principal) ==

== ENCOUNTER 2020-04-29 08:00 | Outpatient (CLI) | payer MEDICARE | END 2020-04-29 23:59 | disposition home or self-care (01) | LOC: LAB.WCP 08:00 | PROVIDERS: ATTEND Family Medicine | DX: Z79.01 Long term (current) use of anticoagulants (principal) ==

== ENCOUNTER 2020-05-27 08:00 | Outpatient (CLI) | payer MEDICARE | END 2020-05-27 23:59 | disposition home or self-care (01) | LOC: LAB.WCP 08:00 | PROVIDERS: ATTEND Family Medicine | DX: Z79.01 Long term (current) use of anticoagulants (principal) ==

== ENCOUNTER 2020-06-24 | Outpatient (CLI) | payer MEDICARE | END 2020-06-24 23:59 | disposition home or self-care (01) | DX: Z79.01 Long term (current) use of anticoagulants (principal) ==

== ENCOUNTER 2020-07-22 08:00 | Outpatient (CLI) | payer MEDICARE | END 2020-07-22 23:59 | disposition home or self-care (01) | LOC: LAB.WCP 08:00 | PROVIDERS: ATTEND Family Medicine | DX: Z79.01 Long term (current) use of anticoagulants (principal) ==

== ENCOUNTER 2020-09-02 08:00 | Outpatient (CLI) | payer MEDICARE | END 2020-09-02 23:59 | disposition home or self-care (01) | LOC: LAB.WCP 08:00 | PROVIDERS: ATTEND Family Medicine | DX: I48.92 Unspecified atrial flutter (principal); Z79.01 Long term (current) use of anticoagulants ==

== ENCOUNTER 2021-04-12 08:06 | Outpatient (CLI) | payer MEDICARE ==
[2021-04-12 11:40] LABS: BASOPHILS % (AUTO) 0.5 %; EOSINOPHILS # (AUTO) 0.1 10^3/uL (0.0-0.7); EOSINOPHILS % (AUTO) 2.7 %; HCT - HEMATOCRIT 44.4 % (42.0-52.0); HGB - HEMOGLOBIN 14.5 g/dL (14.0-18.0); LYMPHOCYTES # (AUTO) 0.9 10^3/uL (1.5-3.5); LYMPHOCYTES % (AUTO) 20.3 %; MEAN CORPUSCULAR HEMOGLOBIN 32.3 pg (27.0-31.0); MEAN CORPUSCULAR HGB CONC 32.7 g/dL (32.0-36.0); MEAN CORPUSCULAR VOLUME 98.9 fL (80.0-94.0); MEAN PLATELET VOLUME 9.4 fL (7.4-11.4); MONOCYTES # (AUTO) 0.4 10^3/uL (0.0-1.0); MONOCYTES % (AUTO) 9.5 %; NEUTROPHILS % (AUTO) 66.8 %; PLT - PLATELET COUNT 217 10^3/uL (130-450); RED BLOOD COUNT 4.49 10^6/uL (4.70-6.10); RED CELL DISTRIBUTION WIDTH 12.2 % (12.0-15.0); WHITE BLOOD COUNT 4.4 x10^3/uL (4.8-10.8)
[2021-04-12 11:41] LABS: BILIRUBIN,URINE NEGATIVE (NEGATIVE); GLUCOSE, URINE (UA) NEGATIVE (NEGATIVE); KETONES,URINE (UA) NEGATIVE (NEGATIVE); LEUKOCYTE ESTERASE, URINE NEGATIVE (NEGATIVE); NITRITE,URINE NEGATIVE (NEGATIVE); OCCULT BLOOD,URINE NEGATIVE (NEGATIVE); PROTEIN,URINE NEGATIVE (NEGATIVE); UROBILINOGEN,URINE 0.2 (NORMAL) E.U./dL (NORMAL)
[2021-04-12 11:58] LABS: BACTERIA,URINE None Seen /HPF (None Seen); CLARITY,URINE CLEAR (CLEAR); RBC,URINE 0-5 /HPF (0-5); SQUAMOUS EPITHELIAL CELL,UR RARE Squamous (<= Few); WBC,URINE 0-3 /HPF (0-3)
[2021-04-12 12:12] LABS: ALBUMIN 4.1 g/dL (3.2-5.5); ALBUMIN/GLOBULIN RATIO 1.5 (1.0-2.2); ALKALINE PHOSPHATASE 60 IU/L (42-121); ALT ALANINE AMINOTRANSFERASE 19 IU/L (10-60); AST ASPARTATE AMINOTRANSFERASE 31 IU/L (10-42); BILIRUBIN,TOTAL 0.9 mg/dL (0.2-1.0); BUN - BLOOD UREA NITROGEN 15 mg/dL (6-20); CALCIUM 9.2 mg/dL (8.5-10.3); CARBON DIOXIDE - CO2 28 mmol/L (21-32); CHLORIDE 102 mmol/L (101-111); CHOL/HDL RATIO 3.6 (<5.0); CHOLESTEROL 192 mg/dL; GFR - MDRD 75 (>89); GLUCOSE 99 mg/dL (70-100); HDL CHOLESTEROL 54 mg/dL; LDL CHOLESTEROL,CALCULATED 102 mg/dL; LDL/HDL RATIO 1.9 (<3.6); POTASSIUM 4.3 mmol/L (3.5-5.0); SODIUM 138 mmol/L (135-145); TOTAL PROTEIN 6.9 g/dL (6.7-8.2); TRIGLYCERIDES 180 mg/dL; VLDL CHOLESTEROL 36 mg/dL
[2021-04-12 12:17] LABS: THYROID STIMULATING HORMONE 0.99 uIU/mL (0.34-5.60)
== END 2021-04-12 23:59 | disposition home or self-care (01) ==
LOC: LAB.WCP 08:06
PROVIDERS: ATTEND Family Medicine
DX: J44.9 Chronic obstructive pulmonary disease, unspecified (principal); C34.90 Malignant neoplasm of unspecified part of unspecified bronchus or lung; Z86.711 Personal history of pulmonary embolism; N40.1 Benign prostatic hyperplasia with lower urinary tract symptoms; Z12.5 Encounter for screening for malignant neoplasm of prostate
CPT/HCPCS: 36415; 80053; 80061; 81001; 84443; 85025; G0103; 83721; 84153; 87086

== ENCOUNTER 2021-10-04 08:06 | Outpatient (CLI) | payer MEDICARE ==
[2021-10-04 12:22] LABS: BASOPHILS % (AUTO) 0.5 %; EOSINOPHILS # (AUTO) 0.1 10^3/uL (0.0-0.7); EOSINOPHILS % (AUTO) 1.6 %; HCT - HEMATOCRIT 44.6 % (42.0-52.0); HGB - HEMOGLOBIN 14.9 g/dL (14.0-18.0); LYMPHOCYTES # (AUTO) 1.1 10^3/uL (1.5-3.5); LYMPHOCYTES % (AUTO) 24.1 %; MEAN CORPUSCULAR HEMOGLOBIN 32.6 pg (27.0-31.0); MEAN CORPUSCULAR HGB CONC 33.4 g/dL (32.0-36.0); MEAN CORPUSCULAR VOLUME 97.6 fL (80.0-94.0); MEAN PLATELET VOLUME 9.5 fL (7.4-11.4); MONOCYTES # (AUTO) 0.5 10^3/uL (0.0-1.0); MONOCYTES % (AUTO) 11.4 %; NEUTROPHILS # (AUTO) 2.7 10^3/uL (1.5-6.6); NEUTROPHILS % (AUTO) 62.2 %; PLT - PLATELET COUNT 194 10^3/uL (130-450); RED BLOOD COUNT 4.57 10^6/uL (4.70-6.10); RED CELL DISTRIBUTION WIDTH 12.6 % (12.0-15.0); WHITE BLOOD COUNT 4.4 x10^3/uL (4.8-10.8)
[2021-10-04 12:52] LABS: ALBUMIN 4.4 g/dL (3.2-5.5); ALBUMIN/GLOBULIN RATIO 1.5 (1.0-2.2); ALKALINE PHOSPHATASE 61 IU/L (42-121); ALT ALANINE AMINOTRANSFERASE 22 IU/L (10-60); AST ASPARTATE AMINOTRANSFERASE 32 IU/L (10-42); BILIRUBIN,TOTAL 1.1 mg/dL (0.2-1.0); BUN - BLOOD UREA NITROGEN 11 mg/dL (6-20); CALCIUM 9.3 mg/dL (8.5-10.3); CARBON DIOXIDE - CO2 29 mmol/L (21-32); CHLORIDE 102 mmol/L (101-111); CHOLESTEROL 206 mg/dL; CREATININE 1.1 mg/dL (0.6-1.2); GFR - MDRD 67 (>89); GLUCOSE 104 mg/dL (70-100); HDL CHOLESTEROL 69 mg/dL; LDL CHOLESTEROL,CALCULATED 116 mg/dL; LDL/HDL RATIO 1.7 (<3.6); POTASSIUM 4.2 mmol/L (3.5-5.0); SODIUM 139 mmol/L (135-145); THYROID STIMULATING HORMONE 1.04 uIU/mL (0.34-5.60); TOTAL PROTEIN 7.3 g/dL (6.7-8.2); TRIGLYCERIDES 106 mg/dL; VLDL CHOLESTEROL 21 mg/dL
== END 2021-10-04 08:07 | disposition home or self-care (01) ==
LOC: LAB.N 08:06
PROVIDERS: ATTEND Family Medicine
DX: J44.9 Chronic obstructive pulmonary disease, unspecified (principal); F17.200 Nicotine dependence, unspecified, uncomplicated; I48.92 Unspecified atrial flutter; E78.5 Hyperlipidemia, unspecified; Z86.711 Personal history of pulmonary embolism
CPT/HCPCS: 36415; 80053; 80061; 83721; 84443; 85025

== ENCOUNTER 2022-04-05 08:07 | Outpatient (CLI) | payer MEDICARE ==
[2022-04-05 12:22] LABS: BASOPHILS % (AUTO) 0.6 %; EOSINOPHILS # (AUTO) 0.1 10^3/uL (0.0-0.7); HCT - HEMATOCRIT 44.9 % (42.0-52.0); HGB - HEMOGLOBIN 15.1 g/dL (14.0-18.0); LYMPHOCYTES # (AUTO) 1.1 10^3/uL (1.5-3.5); LYMPHOCYTES % (AUTO) 23.7 %; MEAN CORPUSCULAR HEMOGLOBIN 32.7 pg (27.0-31.0); MEAN CORPUSCULAR HGB CONC 33.6 g/dL (32.0-36.0); MEAN CORPUSCULAR VOLUME 97.2 fL (80.0-94.0); MEAN PLATELET VOLUME 9.4 fL (7.4-11.4); MONOCYTES # (AUTO) 0.5 10^3/uL (0.0-1.0); MONOCYTES % (AUTO) 10.4 %; NEUTROPHILS # (AUTO) 3.1 10^3/uL (1.5-6.6); NEUTROPHILS % (AUTO) 64.1 %; PLT - PLATELET COUNT 174 10^3/uL (130-450); RED BLOOD COUNT 4.62 10^6/uL (4.70-6.10); RED CELL DISTRIBUTION WIDTH 12.2 % (12.0-15.0); WHITE BLOOD COUNT 4.8 x10^3/uL (4.8-10.8)
[2022-04-05 13:21] LABS: ALBUMIN 4.1 g/dL (3.2-5.5); ALBUMIN/GLOBULIN RATIO 1.5 (1.0-2.2); BILIRUBIN,TOTAL 1.2 mg/dL (0.2-1.0); CALCIUM 9.4 mg/dL (8.5-10.3); CREATININE 1.1 mg/dL (0.6-1.2); POTASSIUM 4.3 mmol/L (3.5-5.0); TOTAL PROTEIN 6.8 g/dL (6.7-8.2)
[2022-04-05 14:00] LABS: THYROID STIMULATING HORMONE 1.42 uIU/mL (0.34-5.60)
== END 2022-04-05 08:08 | disposition home or self-care (01) ==
LOC: LAB.N 08:07
PROVIDERS: ATTEND Family Medicine
DX: C34.90 Malignant neoplasm of unspecified part of unspecified bronchus or lung (principal); J44.9 Chronic obstructive pulmonary disease, unspecified; N40.1 Benign prostatic hyperplasia with lower urinary tract symptoms; R06.09 Other forms of dyspnea
CPT/HCPCS: 36415; 80053; 84443; 85025

== ENCOUNTER 2022-08-24 07:16 | Outpatient (CLI) | payer MEDICARE ==
[2022-08-24 12:16] LABS: BASOPHILS % (AUTO) 0.4 %; EOSINOPHILS # (AUTO) 0.1 10^3/uL (0.0-0.7); EOSINOPHILS % (AUTO) 1.9 %; HCT - HEMATOCRIT 44.2 % (42.0-52.0); HGB - HEMOGLOBIN 14.2 g/dL (14.0-18.0); LYMPHOCYTES # (AUTO) 1.3 10^3/uL (1.5-3.5); LYMPHOCYTES % (AUTO) 26.9 %; MEAN CORPUSCULAR HEMOGLOBIN 31.7 pg (27.0-31.0); MEAN CORPUSCULAR HGB CONC 32.1 g/dL (32.0-36.0); MEAN CORPUSCULAR VOLUME 98.7 fL (80.0-94.0); MEAN PLATELET VOLUME 9.3 fL (7.4-11.4); MONOCYTES # (AUTO) 0.6 10^3/uL (0.0-1.0); MONOCYTES % (AUTO) 12.6 %; NEUTROPHILS # (AUTO) 2.7 10^3/uL (1.5-6.6); NEUTROPHILS % (AUTO) 57.8 %; PLT - PLATELET COUNT 233 10^3/uL (130-450); RED BLOOD COUNT 4.48 10^6/uL (4.70-6.10); RED CELL DISTRIBUTION WIDTH 12.8 % (12.0-15.0); WHITE BLOOD COUNT 4.7 x10^3/uL (4.8-10.8)
[2022-08-24 12:36] LABS: ALBUMIN 3.9 g/dL (3.2-5.5); ALBUMIN/GLOBULIN RATIO 1.3 (1.0-2.2); BILIRUBIN,TOTAL 0.8 mg/dL (0.2-1.0); CALCIUM 9.3 mg/dL (8.5-10.3); CREATININE 1.1 mg/dL (0.6-1.2); POTASSIUM 4.3 mmol/L (3.5-5.0); TOTAL PROTEIN 6.9 g/dL (6.7-8.2)
[2022-08-24 12:49] LABS: THYROID STIMULATING HORMONE 1.38 uIU/mL (0.34-5.60)
== END 2022-08-24 07:17 | disposition home or self-care (01) ==
LOC: LAB.N 07:16
PROVIDERS: ATTEND Family Medicine
DX: J44.1 Chronic obstructive pulmonary disease with (acute) exacerbation (principal); R00.0 Tachycardia, unspecified; C34.90 Malignant neoplasm of unspecified part of unspecified bronchus or lung; F17.200 Nicotine dependence, unspecified, uncomplicated; Z86.711 Personal history of pulmonary embolism
CPT/HCPCS: 36415; 80053; 84443; 85025

== ENCOUNTER 2023-02-10 08:00 | Outpatient (CLI) | payer MEDICARE ==
[2023-02-10 12:16] LABS: BASOPHILS % (AUTO) 0.2 %; EOSINOPHILS # (AUTO) 0.1 10^3/uL (0.0-0.7); LYMPHOCYTES % (AUTO) 11.4 %; MEAN CORPUSCULAR HEMOGLOBIN 31.7 pg (27.0-31.0); MEAN CORPUSCULAR HGB CONC 32.6 g/dL (32.0-36.0); MEAN CORPUSCULAR VOLUME 97.3 fL (80.0-94.0); MEAN PLATELET VOLUME 9.2 fL (7.4-11.4); MONOCYTES # (AUTO) 0.8 10^3/uL (0.0-1.0); MONOCYTES % (AUTO) 8.7 %; NEUTROPHILS # (AUTO) 6.7 10^3/uL (1.5-6.6); NEUTROPHILS % (AUTO) 78.2 %; PLT - PLATELET COUNT 274 10^3/uL (130-450); RED BLOOD COUNT 4.42 10^6/uL (4.70-6.10); RED CELL DISTRIBUTION WIDTH 12.6 % (12.0-15.0); WHITE BLOOD COUNT 8.6 x10^3/uL (4.8-10.8)
[2023-02-10 13:04] LABS: ALBUMIN 4.1 g/dL (3.2-5.5); ALBUMIN/GLOBULIN RATIO 1.3 (1.0-2.2); ALKALINE PHOSPHATASE 69 IU/L (42-121); ALT ALANINE AMINOTRANSFERASE 13 IU/L (10-60); AST ASPARTATE AMINOTRANSFERASE 20 IU/L (10-42); BILIRUBIN,TOTAL 0.9 mg/dL (0.2-1.0); BUN - BLOOD UREA NITROGEN 12 mg/dL (6-20); CALCIUM 9.6 mg/dL (8.5-10.3); CARBON DIOXIDE - CO2 29 mmol/L (21-32); CHLORIDE 103 mmol/L (101-111); CHOLESTEROL 180 mg/dL; CREATININE 1.1 mg/dL (0.6-1.3); GFR - MDRD 67 (>89); GLUCOSE 105 mg/dL (74-104); HDL CHOLESTEROL 60 mg/dL; LDL CHOLESTEROL,CALCULATED 100 mg/dL; LDL/HDL RATIO 1.7 (<3.6); POTASSIUM 4.4 mmol/L (3.5-4.5); SODIUM 139 mmol/L (135-145); TOTAL PROTEIN 7.2 g/dL (6.4-8.9); TRIGLYCERIDES 102 mg/dL (48-352); VLDL CHOLESTEROL 20 mg/dL
[2023-02-10 13:30] LABS: ESTIMATED AVERAGE GLUCOSE 114 mg/dL (70-100); HEMOGLOBIN A1c% 5.6 % (4.27-6.07)
[2023-02-10 13:49] LABS: THYROID STIMULATING HORMONE 1.68 uIU/mL (0.34-5.60)
== END 2023-02-10 23:59 | disposition home or self-care (01) ==
LOC: LAB.N 08:00
PROVIDERS: ATTEND Family Medicine
DX: I11.0 Hypertensive heart disease with heart failure (principal); I50.43 Acute on chronic combined systolic (congestive) and diastolic (congestive) heart failure; J43.8 Other emphysema; J96.10 Chronic respiratory failure, unspecified whether with hypoxia or hypercapnia; R00.0 Tachycardia, unspecified; F17.200 Nicotine dependence, unspecified, uncomplicated
CPT/HCPCS: 36415; 80053; 80061; 83036; 83721; 84443; 85025

== ENCOUNTER 2023-03-10 07:44 | Outpatient (CLI) | payer MEDICARE ==
[2023-03-10] MEDS ORDERED: ALBUTEROL 1 PUFF INH STA (13:03)
== END 2023-03-10 07:45 | disposition home or self-care (01) ==
LOC: RT 07:44
PROVIDERS: ATTEND Family Medicine
DX: J96.10 Chronic respiratory failure, unspecified whether with hypoxia or hypercapnia (principal); R00.0 Tachycardia, unspecified
CPT/HCPCS: 94060; 94729

== ENCOUNTER 2023-05-05 16:46 | Outpatient (CLI) | payer MEDICARE | END 2023-05-05 16:47 | disposition short-term general hospital (02) | LOC: EMS 16:46 | DX: R06.03 Acute respiratory distress (principal); R61 Generalized hyperhidrosis; R23.1 Pallor; Z99.81 Dependence on supplemental oxygen | CPT/HCPCS: A0425; A0427 ==

== ENCOUNTER 2023-05-11 08:00 | Outpatient (CLI) | payer MEDICARE | END 2023-05-11 23:59 | disposition home or self-care (01) | LOC: LAB.N 08:00 | PROVIDERS: ATTEND Family Medicine | DX: R19.7 Diarrhea, unspecified (principal) | CPT/HCPCS: 87045; 87046; 87427 ==

== ENCOUNTER 2023-05-20 08:00 | Outpatient (CLI) | payer MEDICARE ==
[2023-05-20 20:46] LABS: FECAL OCCULT BLOOD (FIT) POSITIVE (NEGATIVE)
== END 2023-05-20 23:59 | disposition home or self-care (01) ==
LOC: LAB.N 08:00
PROVIDERS: ATTEND Family Medicine
DX: R19.7 Diarrhea, unspecified (principal)
CPT/HCPCS: 82274; 83993; 87045; 87046; 87427; 87493

== ENCOUNTER 2023-08-01 10:57 | Outpatient (CLI) | payer MEDICARE ==
[2023-08-01 18:28] LABS: BASOPHILS % (AUTO) 0.2 %; EOSINOPHILS # (AUTO) 0.1 10^3/uL (0.0-0.7); HCT - HEMATOCRIT 42.1 % (42.0-52.0); HGB - HEMOGLOBIN 13.2 g/dL (14.0-18.0); LYMPHOCYTES # (AUTO) 0.9 10^3/uL (1.5-3.5); LYMPHOCYTES % (AUTO) 9.9 %; MEAN CORPUSCULAR HEMOGLOBIN 30.9 pg (27.0-31.0); MEAN CORPUSCULAR HGB CONC 31.4 g/dL (32.0-36.0); MEAN CORPUSCULAR VOLUME 98.6 fL (80.0-94.0); MEAN PLATELET VOLUME 9.3 fL (7.4-11.4); MONOCYTES # (AUTO) 0.9 10^3/uL (0.0-1.0); MONOCYTES % (AUTO) 10.3 %; NEUTROPHILS % (AUTO) 78.3 %; PLT - PLATELET COUNT 321 10^3/uL (130-450); RED BLOOD COUNT 4.27 10^6/uL (4.70-6.10); RED CELL DISTRIBUTION WIDTH 13.1 % (12.0-15.0); WHITE BLOOD COUNT 8.9 x10^3/uL (4.8-10.8)
[2023-08-01 18:51] LABS: ALBUMIN 3.9 g/dL (3.2-5.5); ALBUMIN/GLOBULIN RATIO 1.1 (1.0-2.2); ALKALINE PHOSPHATASE 74 IU/L (42-121); ALT ALANINE AMINOTRANSFERASE 20 IU/L (10-60); AST ASPARTATE AMINOTRANSFERASE 24 IU/L (10-42); BILIRUBIN,TOTAL 0.6 mg/dL (0.2-1.0); BUN - BLOOD UREA NITROGEN 17 mg/dL (6-20); CALCIUM 9.8 mg/dL (8.5-10.3); CARBON DIOXIDE - CO2 29 mmol/L (21-32); CHLORIDE 102 mmol/L (101-111); CHOL/HDL RATIO 3.6 (<5.0); CHOLESTEROL 187 mg/dL; GFR - MDRD 74 (>89); GLUCOSE 112 mg/dL (74-104); HDL CHOLESTEROL 52 mg/dL; LDL CHOLESTEROL,CALCULATED 101 mg/dL; LDL/HDL RATIO 1.9 (<3.6); SODIUM 139 mmol/L (135-145); TOTAL PROTEIN 7.4 g/dL (6.4-8.9); TRIGLYCERIDES 172 mg/dL (48-352); VLDL CHOLESTEROL 34 mg/dL
[2023-08-01 18:54] LABS: THYROID STIMULATING HORMONE 0.77 uIU/mL (0.34-5.60)
== END 2023-08-01 10:58 | disposition home or self-care (01) ==
LOC: LAB.N 10:57
PROVIDERS: ATTEND Family Medicine
DX: C34.90 Malignant neoplasm of unspecified part of unspecified bronchus or lung (principal); J95.811 Postprocedural pneumothorax; F41.0 Panic disorder [episodic paroxysmal anxiety]; R00.0 Tachycardia, unspecified; J96.10 Chronic respiratory failure, unspecified whether with hypoxia or hypercapnia; N40.1 Benign prostatic hyperplasia with lower urinary tract symptoms; J44.9 Chronic obstructive pulmonary disease, unspecified; I48.92 Unspecified atrial flutter
CPT/HCPCS: 36415; 80053; 80061; 83721; 84443; 85025

== ENCOUNTER 2024-01-21 17:05 | Outpatient (CLI) | payer MEDICARE | END 2024-01-21 23:59 | disposition critical access hospital (66) | LOC: EMS 17:05 | DX: R40.4 Transient alteration of awareness (principal); R06.00 Dyspnea, unspecified | CPT/HCPCS: A0425; A0427 ==

== ENCOUNTER 2024-01-21 17:20 | Emergency (ER) | payer MEDICARE ==
--- NOTE | 2024-01-21 17:30 | ED Physician Documentation ---
PD HPI DYSPNEA - Stated complaint Stated Complaint: COPD - History obtained from History obtained from: EMS - Additional information Additional information: History from EMS as the patient is intubated. He has a history of stage IV COPD on a baseline of 3 L of oxygen. He became more short of breath than normal this afternoon and oxygen was increased. 4 L and albuterol was initiated without improvement. EMS found him to have a sat of 68% on 4 L of supplemental oxygen. He received nebs en route but continued to worsen and requested to be intubated which was done in the parking lot of the hospital. He is reportedly full code but no POLST is known of. PD PAST MEDICAL HISTORY - Past Medical History Cardiovascular: Hypertension Respiratory: Other - Past Surgical History Past Surgical History: No Neuro: Gamma knife - Present Medications Home Medications: Ambulatory Orders Medication Instructions Recorded Confirmed lisinopriL [Lisinopril] 10 mg PO DAILY 06/14/14 07/11/17 Famotidine 20 mg PO DAILY 06/25/17 07/11/17 LORazepam [Ativan] 0.5 mg PO DAILY 06/25/17 07/11/17 Pravastatin Sodium 80 mg PO DAILY 06/25/17 07/11/17 Warfarin [Coumadin] 1 mg PO DAILY 06/25/17 07/11/17 Warfarin [Coumadin] 5 mg PO DAILY 06/25/17 07/11/17 Albuterol Sulf [Ventolin Hfa 1 - 2 puffs INH Q4HR PRN #1 inhaler 07/11/17 Inhaler] Azithromycin [Zithromax] 250 mg PO DAILY #6 tablet 07/11/17 Benzonatate [Tessalon] 100 mg PO TID PRN #25 capsule 07/11/17 dexAMETHasone [Decadron] 4 mg PO DAILY #5 tablet 07/11/17 - Allergies Allergies/Adverse Reactions: Allergies Allergy/AdvReac Type Severity Reaction Status Date / Time No Known Drug Allergies Allergy Unverified 01/21/24 17:58 - Social History Does the pt smoke?: No Smoking Status: Never smoker Does the pt drink ETOH?: No Does the pt have substance abuse?: No - Immunizations Immunizations are current?: Yes - POLST Patient has POLST: No PD ED PE NORMAL - Vitals Vital signs reviewed: Yes - General General: Other (He is intubated but breathing on his own above bagging. Initially tube is deep at 28 cm at the lips.) - Neck Neck: Supple, no meningeal sign, No bony TTP - Cardiac Cardiac: RRR, No murmur - Respiratory Respiratory: Other (Diminished breath sounds on the right and absent on the left subsequent to which we pulled back the endotracheal tube by a few centimeters and now breath sounds are symmetric.) - Abdomen Abdomen: Soft, Non tender - Extremities Extremities: No edema, No calf tenderness / cord - Neuro Eye Opening: None Motor: Withdraws to Pain Verbal: None (T) GCS Score: 6 Results - Vitals Vitals: Vital Signs - 24 hr 01/21/24 01/21/24 01/21/24 17:26 17:52 17:55 Temperature Heart Rate 124 H 124 H Respiratory 17 21 Rate Blood Pressure 151/88 H 124/69 109/50 L O2 Saturation 100 100 01/21/24 01/21/24 01/21/24 18:00 18:05 18:10 Temperature Heart Rate 123 H 121 H 119 H Respiratory 124 H 26 H 30 H Rate Blood Pressure 85/71 L 90/72 112/75 O2 Saturation 99 100 100 01/21/24 01/21/24 01/21/24 18:17 18:22 18:25 Temperature 35.5 C L Heart Rate 114 H 114 H 105 H Respiratory 26 H 18 23 Rate Blood Pressure 151/88 H 91/68 O2 Saturation 100 100 01/21/24 01/21/24 01/21/24 18:30 18:40 18:45 Temperature Heart Rate 113 H 106 H 103 H Respiratory 19 25 H 20 Rate Blood Pressure 81/58 L 97/71 95/66 O2 Saturation 100 100 100 01/21/24 01/21/24 01/21/24 18:55 19:00 19:04 Temperature Heart Rate 101 H 95 96 Respiratory 12 11 L Rate Blood Pressure 71/46 L 79/62 L O2 Saturation 100 100 01/21/24 01/21/24 01/21/24 19:05 19:10 19:15 Temperature Heart Rate 95 96 97 Respiratory 16 15 14 Rate Blood Pressure 98/72 112/73 120/80 O2 Saturation 100 100 100 01/21/24 01/21/24 01/21/24 19:20 19:26 19:29 Temperature Heart Rate 96 97 95 Respiratory 16 15 14 Rate Blood Pressure 109/76 107/82 H 119/78 O2 Saturation 100 100 100 01/21/24 01/21/24 01/21/24 19:35 19:40 19:45 Temperature Heart Rate 95 97 97 Respiratory 15 17 20 Rate Blood Pressure 113/80 113/80 112/77 O2 Saturation 100 100 100 01/21/24 01/21/24 01/21/24 19:48 20:00 20:10 Temperature 34.9 C L Heart Rate 96 99 100 Respiratory 23 16 Rate Blood Pressure 117/74 118/77 O2 Saturation 95 94 01/21/24 01/21/24 01/21/24 20:15 20:30 20:40 Temperature 35.5 C L 36.1 C L 36.3 C L Heart Rate 97 98 97 Respiratory 20 18 19 Rate Blood Pressure 94/82 H 95/76 99/71 O2 Saturation 94 94 92 01/21/24 01/21/24 01/21/24 20:45 20:58 21:00 Temperature 36.5 C 36.7 C Heart Rate 97 97 92 Respiratory 21 18 Rate Blood Pressure 91/69 101/74 O2 Saturation 90 L 96 01/21/24 01/21/24 01/21/24 21:05 21:10 21:15 Temperature Heart Rate 92 93 93 Respiratory 17 17 18 Rate Blood Pressure 102/74 101/74 108/76 O2 Saturation 94 96 95 01/21/24 01/21/24 01/21/24 21:20 21:30 21:38 Temperature Heart Rate 95 Respiratory 17 Rate Blood Pressure 116/72 135/122 H 126/81 H O2 Saturation 95 01/21/24 01/21/24 01/21/24 21:45 21:50 21:55 Temperature 37.2 C Heart Rate 100 102 H 100 Respiratory 17 20 18 Rate Blood Pressure 117/77 125/75 122/71 O2 Saturation 100 100 100 01/21/24 01/21/24 01/21/24 22:00 22:05 22:10 Temperature 37.5 C Heart Rate 99 98 96 Respiratory 18 19 17 Rate Blood Pressure 117/72 102/67 99/63 O2 Saturation 100 100 100 01/21/24 01/21/24 01/21/24 22:15 22:20 22:22 Temperature Heart Rate 99 99 102 H Respiratory 18 18 22 Rate Blood Pressure 114/72 107/77 80/59 L O2 Saturation 100 100 94 07/01/21/24 01/21/24 22:25 22:27 22:40 Temperature Heart Rate 96 100 92 Respiratory 16 16 Rate Blood Pressure 85/60 L 81/60 L O2 Saturation 98 97 Oxygen O2 Source Mechanical ventilator - Labs Labs: Laboratory Tests 01/21/24 01/21/24 01/21/24 17:35 17:35 17:35 WBC 18.0 H RBC 4.76 Hgb 15.1 Hct 47.0 MCV 98.7 H MCH 31.7 H MCHC 32.1 RDW 12.8 Plt Count 208 MPV 8.9 Neut # (Auto) 14.5 H Lymph # (Auto) 2.0 Cobb # (Auto) 1.3 H Eos # (Auto) 0.1 Baso # (Auto) 0.1 Absolute Nucleated RBC 0.00 Nucleated RBC % 0.0 PT 10.6 INR 1.0 Bld Gas Analysis Time Sample Site ABG pH ABG pCO2 ABG pO2 ABG HCO3 ABG Total CO2 ABG O2 Saturation ABG Base Excess Ritesh Test VBG pH VBG pCO2 VBG pO2 VBG HCO3 VBG Total CO2 VBG O2 Saturation VBG Base Excess Respiration Rate O2 Delivery Device Vent Mode FiO2 Tidal Volume PEEP Pressure Support Vent Sodium 138 Potassium 5.5 H Chloride 100 L Carbon Dioxide 34 H Anion Gap 4.0 L BUN 17 Creatinine 1.3 Estimated GFR (MDRD) 55 L Glucose 149 H Lactic Acid Calcium 9.9 Phosphorus 7.7 H Magnesium 2.0 Total Bilirubin 0.4 AST 32 ALT 23 Alkaline Phosphatase 76 Total Protein 7.5 Albumin 4.3 Globulin 3.2 Albumin/Globulin Ratio 1.3 Nasal Adenovirus (PCR) Nasal B. parapertussis DNA (PCR) Nasal Coronavir 229E PCR Nasal Coronavir HKU1 PCR Nasal Coronavir NL63 PCR Nasal Coronavir OC43 PCR Nasal Enterovir/Rhinovir PCR Nasal Influenza B PCR Nasal Influenza A PCR Nasal Parainfluen 1 PCR Nasal Parainfluen 2 PCR Nasal Parainfluen 3 PCR Nasal Parainfluen 4 PCR Nasal RSV (PCR) Nasal B.pertussis DNA PCR Nasal C.pneumoniae (PCR) [place] Human Metapneumo PCR Nasal M.pneumoniae (PCR) Nasal SARS-CoV-2 (PCR) 01/21/24 01/21/24 01/21/24 17:35 17:35 18:33 WBC RBC Hgb Hct MCV MCH MCHC RDW Plt Count MPV Neut # (Auto) Lymph # (Auto) Cobb # (Auto) Eos # (Auto) Baso # (Auto) Absolute Nucleated RBC Nucleated RBC % PT INR Bld Gas Analysis Time Sample Site ABG pH ABG pCO2 ABG pO2 ABG HCO3 ABG Total CO2 ABG O2 Saturation ABG Base Excess Ritesh Test VBG pH 7.108 L* VBG pCO2 92.6 H VBG pO2 43.7 VBG HCO3 28.6 H VBG Total CO2 31.5 H VBG O2 Saturation 69.2 VBG Base Excess -4.0 L Respiration Rate O2 Delivery Device Vent Mode FiO2 Tidal Volume PEEP Pressure Support Vent Sodium Potassium Chloride Carbon Dioxide Anion Gap BUN Creatinine Estimated GFR (MDRD) Glucose Lactic Acid 0.9 Calcium Phosphorus Magnesium Total Bilirubin AST ALT Alkaline Phosphatase Total Protein Albumin Globulin Albumin/Globulin Ratio Nasal Adenovirus (PCR) NOT DETECTED Nasal B. parapertussis DNA (PCR) NOT DETECTED Nasal Coronavir 229E PCR NOT DETECTED Nasal Coronavir HKU1 PCR NOT DETECTED Nasal Coronavir NL63 PCR NOT DETECTED Nasal Coronavir OC43 PCR NOT DETECTED Nasal Enterovir/Rhinovir PCR NOT DETECTED Nasal Influenza B PCR NOT DETECTED Nasal Influenza A PCR NOT DETECTED Nasal Parainfluen 1 PCR NOT DETECTED Nasal Parainfluen 2 PCR NOT DETECTED Nasal Parainfluen 3 PCR NOT DETECTED Nasal Parainfluen 4 PCR NOT DETECTED Nasal RSV (PCR) NOT DETECTED Nasal B.pertussis DNA PCR NOT DETECTED Nasal C.pneumoniae (PCR) NOT DETECTED [place] Human Metapneumo PCR NOT DETECTED Nasal M.pneumoniae (PCR) NOT DETECTED Nasal SARS-CoV-2 (PCR) NOT DETECTED 01/21/24 19:25 WBC RBC Hgb Hct MCV MCH MCHC RDW Plt Count MPV Neut # (Auto) Lymph # (Auto) Cobb # (Auto) Eos # (Auto) Baso # (Auto) Absolute Nucleated RBC Nucleated RBC % PT INR Bld Gas Analysis Time 1930 Sample Site RIGHT RADIAL ABG pH 7.28 L ABG pCO2 51 H ABG pO2 177 H* ABG HCO3 23.3 ABG Total CO2 24.8 ABG O2 Saturation 99 H ABG Base Excess -3.9 L Ritesh Test POSITIVE VBG pH VBG pCO2 VBG pO2 VBG HCO3 VBG Total CO2 VBG O2 Saturation VBG Base Excess Respiration Rate 12 O2 Delivery Device VENTILATOR Vent Mode SIMV FiO2 60.00 Tidal Volume 450 PEEP 5 Pressure Support Vent 14 Sodium Potassium Chloride Carbon Dioxide Anion Gap BUN Creatinine Estimated GFR (MDRD) Glucose Lactic Acid Calcium Phosphorus Magnesium Total Bilirubin AST ALT Alkaline Phosphatase Total Protein Albumin Globulin Albumin/Globulin Ratio Nasal Adenovirus (PCR) Nasal B. parapertussis DNA (PCR) Nasal Coronavir 229E PCR Nasal Coronavir HKU1 PCR Nasal Coronavir NL63 PCR Nasal Coronavir OC43 PCR Nasal Enterovir/Rhinovir PCR Nasal Influenza B PCR Nasal Influenza A PCR Nasal Parainfluen 1 PCR Nasal Parainfluen 2 PCR Nasal Parainfluen 3 PCR Nasal Parainfluen 4 PCR Nasal RSV (PCR) Nasal B.pertussis DNA PCR Nasal C.pneumoniae (PCR) [place] Human Metapneumo PCR Nasal M.pneumoniae (PCR) Nasal SARS-CoV-2 (PCR) - Rads (name of study) Single view chest x-ray showing known hilar lung opacity unchanged, right lung edema versus pneumonitis, ETT and CVC in appropriate position. Relevant Findings:: Final report received, EMP independent interpretation of test Procedures - Central Line - Major Central Line Preparation: Unable to obtain consent, Time out completed, Ultrasound used, Sterile prep and drape Central line location: Right IJ Central line type: Triple lumen Central line aftercare: Chlorhexidine disc placed, Secured, Placement confirmed, No pneumothorax, No complications, Bundle checklist complete, Pt tolerated well PD Medical Decision Making - ED course ED course: 68-year-old gentleman with late stage COPD presents with respiratory failure having been intubated on arrival to the hospital in the parking lot by paramedics with a 6.5 tube. The tube was initially deep and pulled back with improvement in breath sounds. On the ventilator he was stabilized without significantly elevated pulmonary pressures. Chest x-ray and broad range of lab work was ordered. Initial results are notable for white count of 18,000, INR of 1.0. His venous blood gas is significant for significant respiratory acidosis with venous pH of 7.11 and CO2 of 93. He probably has some level of chronic CO2 retention with his bicarb of 34 on CMP, but this is clearly more acute than chronic at this point. I placed a central line as he only had a peripheral IV and their nurse was unable to place a second. He was started on propofol and fentanyl drips for comfort, IV antibiotics with azithromycin and Rocephin after blood cultures, Solu-Medrol, and inline nebs. Discussed case by phone with who is agreeable with plan. She said she would make her way to the hospital. 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 Notified that [facility] is "tight on beds." The health equal opportunity specialist called [facility] who requested we call [facility] which the health equal opportunity specialist did and received authorization for transfer to [facility] and we are waiting for a call back from their hospice director. Care to Dr. Liu at 7 PM shift change pending callback from the hospice director. His has not arrived at the bedside as of that time. - Critical Care Time(min): 45 Time Includes: Direct patient care, Review records, Reassess patient, Document care, Coordinate care, Medical consult, Family consult for tx dec Data interpretation: Labs, Pulse ox Procedures included in critical care time: Peripheral IV, Ventilator mgmt Procedures excluded from critical care time: Central IV, EKG Departure - Departure Disposition: 02 Transfer Acute Care Hosp Clinical Impression: COPD exacerbation, Respiratory failure requiring intubation Condition: Critical Discharge Date/Time: 01/21/24 22:40
[2024-01-21] MEDS ORDERED: PROPOFOL 1000 MG/100 ML 1,000 MG/100 ML BOTTLE IV ONE (17:36)
[2024-01-21] MEDS: PROPOFOL 1000 MG/100 ML 1,000 MG/100 ML BOTTLE IV STA (17:37)
[2024-01-21 17:40] LABS: BASOPHILS # (AUTO) 0.1 10^3/uL (0.0-0.1); BASOPHILS % (AUTO) 0.3 %; EOSINOPHILS # (AUTO) 0.1 10^3/uL (0.0-0.7); EOSINOPHILS % (AUTO) 0.4 %; HGB - HEMOGLOBIN 15.1 g/dL (14.0-18.0); MEAN CORPUSCULAR HEMOGLOBIN 31.7 pg (27.0-31.0); MEAN CORPUSCULAR HGB CONC 32.1 g/dL (32.0-36.0); MEAN CORPUSCULAR VOLUME 98.7 fL (80.0-94.0); MEAN PLATELET VOLUME 8.9 fL (7.4-11.4); MONOCYTES # (AUTO) 1.3 10^3/uL (0.0-1.0); MONOCYTES % (AUTO) 7.3 %; NEUTROPHILS # (AUTO) 14.5 10^3/uL (1.5-6.6); NEUTROPHILS % (AUTO) 80.5 %; PLT - PLATELET COUNT 208 10^3/uL (130-450); RED BLOOD COUNT 4.76 10^6/uL (4.70-6.10); RED CELL DISTRIBUTION WIDTH 12.8 % (12.0-15.0)
[2024-01-21 17:44] LABS: VBG PCO2 92.6 mmHg (41-51); VBG PO2 43.7 mmHg (25-47)
[2024-01-21 17:45] LABS: VBG HCO3 28.6 mmol/L (23-28); VBG OXYGEN SATURATION 69.2 % (60-80); VBG TOTAL CO2 31.5 mmol/L (24-29)
[2024-01-21 17:49] LABS: VBG PH 7.108 (7.31-7.41)
[2024-01-21 17:58] LABS: PT - PROTHROMBIN TIME 10.6 secs (9.9-12.6)
[2024-01-21] MEDS: SODIUM CHLORIDE 0.9% 1,000 ML IV STA (18:00)
[2024-01-21] MEDS: fentaNYL 2,500 MCG in SODIUM CHLORIDE 0.9% 200 ML IV STA (18:00)
[2024-01-21 18:02] LABS: ALBUMIN 4.3 g/dL (3.2-5.5); ALBUMIN/GLOBULIN RATIO 1.3 (1.0-2.2); BILIRUBIN,TOTAL 0.4 mg/dL (0.2-1.0); CALCIUM 9.9 mg/dL (8.5-10.3); CREATININE 1.3 mg/dL (0.6-1.3); PHOSPHORUS 7.7 mg/dL (2.5-5.0); POTASSIUM 5.5 mmol/L (3.5-4.5); TOTAL PROTEIN 7.5 g/dL (6.4-8.9)
[2024-01-21] MEDS: ALBUTEROL NEB 2.5 MG/3 ML INH STA (18:16)
--- NOTE | 2024-01-21 18:28 | XRAY Report ---
PROCEDURE: Chest 1V INDICATIONS: resp failure TECHNIQUE: One view of the chest was acquired. COMPARISON: 07/11/2017. FINDINGS: Surgical changes and devices: ET tube tip is approximately 5.2 cm above the manjinder. Right internal j ugular central venous catheter tip is in SVC.. Lungs and pleura: No pleural effusions or pneumothorax. Patient's known left hilar/posterior left jaqueline ng opacity is again seen now measures 2.5 cm in size compared to 5 cm on previous study. Increased in terstitial lung markings are noted predominantly involving right lung field. Mild hyperinflation is a lso seen. Mediastinum: Mediastinal contours appear normal. Heart size is normal. Bones and chest wall: No suspicious bony lesions. Overlying soft tissues appear unremarkable. IMPRESSION: 1. Patient's known left hilar/posterior left lung opacity is unchanged or smaller in size. 2. Increase in interstitial lung markings in right lung concerning for interstitial pulmonary edema v ersus pneumonitis. 3. ET tube tip is approximately 5.2 cm above the manjinder. Right internal jugular central venous cathet er tip is in SVC. Reviewed by: Noel Clark MD on 01/21/2024 6:26 PM PDT Approved by: Noel Clark MD on 01/21/2024 6:26 PM PDT Station ID: [id number]
[2024-01-21] MEDS ORDERED: NOREPINEPHRINE/0.9 % NS 8 MG/250 ML BAG IV ONE (18:59)
[2024-01-21] MEDS: NOREPINEPHRINE/0.9 % NS 8 MG/250 ML BAG IV SCH (19:04)
[2024-01-21] MEDS: cefTRIAXone 1 GM VIAL IVP STA ×2 (19:06→20:10)
[2024-01-21] MEDS: MAGNESIUM SULFATE 2 GRAM 2 GM/50 ML BAG IV ONE ×2 (19:12→20:10)
[2024-01-21] MEDS: methylPREDNISolone SUCCINATE 125 MG/2 ML VIAL IVP STA ×2 (19:20→19:55)
[2024-01-21 19:32] LABS: ABG BASE EXCESS -3.9 mmol/L (-2.0-3.0); ABG HCO3 23.3 mmol/L (22.0-26.0); ABG OXYGEN SATURATION 99 % (94-98); ABG PCO2 51 mmHg (34-45); ABG PH 7.28 (7.35-7.45); ABG TCO2 24.8 MMOL/L (21.0-29.0); ALLEN TEST POSITIVE
[2024-01-21 19:33] LABS: ABG MODE OF VENTILATION SIMV; ABG RESPIRATORY RATE 12 b/min
[2024-01-21 19:35] LABS: B. PARAPERTUSSIS- RESP PCR PAN NOT DETECTED; B. PERTUSSIS- RESP PCR PANEL NOT DETECTED; C. PNEUMONIAE- RESP PCR PANEL NOT DETECTED; CORONAVIRUS 229E-RESP PCR NOT DETECTED; CORONAVIRUS HKU1-RESP PCR NOT DETECTED; CORONAVIRUS NL63-RESP PCR NOT DETECTED; CORONAVIRUS OC43-RESP PCR NOT DETECTED; HUMAN METAPNEUMOVIRUS NOT DETECTED; INFLUENZA A- RESP PCR PANEL NOT DETECTED; INFLUENZA B - RESP PCR PANEL NOT DETECTED; M. PNEUMONIAE- RESP PCR PANEL NOT DETECTED; PARAINFLUENZA VIRUS 1 NOT DETECTED; PARAINFLUENZA VIRUS 2 NOT DETECTED; PARAINFLUENZA VIRUS 3 NOT DETECTED; PARAINFLUENZA VIRUS 4 NOT DETECTED; RHINOVIRUS/ENTEROVIRUS NOT DETECTED; RSV- RESP PCR PANEL NOT DETECTED; SARS-CoV-2 -RESP PCR PANEL NOT DETECTED
[2024-01-21 19:35] LABS: ABG PO2 177 mmHg (80-100)
[2024-01-21] MEDS: AZITHROMYCIN INJ 500 MG in SODIUM CHLORIDE 0.9% 250 ML IV STA ×2 (19:51→19:54)
[2024-01-21] MEDS ORDERED: iohexoL-300 100 ML VIAL ONE (20:20)
[2024-01-21] MEDS: iohexoL-300 100 ML VIAL IVP ONE (21:44)
[2024-01-21 22:58] VITALS: BP 81/60; O2SAT 97
--- NOTE | 2024-01-21 23:00 | CT Report ---
PROCEDURE: Angio Chest INDICATIONS: dyspnea, hypoxia CONTRAST: 100 ml omni 300= TECHNIQUE: After the administration of intravenous contrast, 2 mm axial images were acquired from the pulmonary apices to the posterior costophrenic angles during the arterial phase. In addition, 1 mm lung kernel and 5 mm soft tissue kernel reconstructions were performed. 3-dimensional coronal oblique maximum int ensity projection (MIP) reformats, 8 mm axial MIP, and 5 mm coronal and sagittal MPR reformats were t hen performed through the thorax. For radiation dose reduction, the following was used: automated exp osure control, adjustment of mA and/or kV according to patient size. COMPARISON: Chest radiograph from same day FINDINGS: Image quality: Diagnostic. Large vessels: No filling defects within the opacified pulmonary arteries, accounting for motion and contrast timing. No evidence of acute aortic syndrome or aortic aneurysm. Lungs and pleura: Severe upper lobe predominant pulmonary emphysematous changes. Small right pleural effusion with associated compressive atelectasis. Consolidation/atelectasis of the medial aspect of t he left lower lobe. Suggestion of atelectatic lung versus soft tissue density encasing the airways an d vessels of the medial left lower lobe. No definite hilar mass identified. Asymmetric prominence of the right hemidiaphragm/interstitial prominence correlates with mild diffuse groundglass opacities of the right hemithorax. There is an irregular pulmonary nodule in the right upper lobe measuring 1.0 x 1.6 cm (33/series 6). No pneumothorax. Endotracheal tube tip terminates a short distance above the manjinder. Mediastinum: Heart size is normal. Moderate pericardial effusion. No flattening of the interventricul ar septum more anterior right ventricular wall. No large vessel abnormality. No mediastinal adenopath y by size criteria. Moderate atherosclerosis of the coronary vessels. Chest wall and lower neck: Thyroid is unremarkable. No axillary or supraclavicular adenopathy by size . Bones: No aggressive osseous abnormality. No acute compression fractures. Upper Abdomen: Nasogastric tube extends into the stomach. Other upper abdominal structures are unrema rkable. IMPRESSION: No pulmonary embolus. Severe upper lobe predominant pulmonary emphysematous changes more pronounced in the left hemithorax. Irregular 1.0 x 1.6 cm right upper lobe pulmonary nodule. Recommend follow-up CT chest in 3 [address] ve [address]us PET CT. Medial left lower lobe consolidation with associated atelectasis. Soft tissue density appears to enca se the airways and vessels likely related to atelectatic lung. However, concurrent mass cannot be exc luded. No evidence for hilar adenopathy. Attention on follow-up imaging will be made. Small right pleural effusion with associated compressive atelectasis. Diffuse groundglass opacities of the right hemithorax may represent an infectious or inflammatory pro cess. Reviewed by: Jimmy Lion MD on 01/21/2024 10:58 PM PDT Approved by: Jimmy Lion MD on 01/21/2024 10:58 PM PDT Station ID: [id number]
--- NOTE | 2024-01-21 23:06 | XRAY Report ---
PROCEDURE: Chest for Line Placement INDICATIONS: ET tube change TECHNIQUE: One view of the chest was acquired. COMPARISON: Radiograph from earlier same day FINDINGS: Surgical changes and devices: Right central venous catheter remain stable in positioning. Nasogastri c tube extends below the level of the diaphragm with distal tip off the [id number]. Endotracheal t ube tip projects approximately 2 cm above the manjinder. Lungs and pleura: Stable appearance of diffuse ground glass opacities/interstitial prominence of the right hemithorax. No dense consolidation seen. No pneumothorax. Left lung remains clear. Mediastinum: Mediastinal contours appear stable. Heart size is normal. Bones and chest wall: No suspicious bony lesions. Overlying soft tissues appear unremarkable. IMPRESSION: Endotracheal tube tip projects approximately 2 cm above the manjinder. Nasogastric tube extends below th e level of diaphragm. Other support equipment unchanged. Otherwise, stable cardiopulmonary evaluation of the chest. Reviewed by: Jimmy Lion MD on 01/21/2024 11:05 PM PDT Approved by: Jimmy Lion MD on 01/21/2024 11:05 PM PDT Station ID: [id number]
[2024-01-21] MEDS: PROPOFOL 200 MG/20 ML VIAL IVP STA (23:46)
== END 2024-01-21 22:40 | disposition short-term general hospital (02) ==
LOC: EDUNIT# → ED 17:20
DX: J44.1 Chronic obstructive pulmonary disease with (acute) exacerbation (principal); J96.90 Respiratory failure, unspecified, unspecified whether with hypoxia or hypercapnia; I10 Essential (primary) hypertension; Z79.01 Long term (current) use of anticoagulants
CPT/HCPCS: 36415; 36556; 71045; 71275; 80053; 82803; 83605; 83735; 84100; 85025; 85610; 87040; 87633; 94002; 94640; 96365; 96366; 96368; 96375; 99291; J3010; Q9967